=== PATIENT | female | born 1945 | race African-American/Black ===

== ENCOUNTER 2017-10-12 13:11 | Inpatient (IN) ==
[2017-10-12] MEDS ORDERED: SODIUM CHLORIDE 0.9% 1,000 ML IV STA (15:10)
[2017-10-12 15:34] LABS: Basophils % 0.4 % (0.0-0.8); Eosinophils % 0.2 % (0.00-10.9); Hematocrit 41.7 VOL% (35.7-47.0); Hemoglobin 14.1 GM/DL (12.0-16.0); Immature Granulocytes % 0.2 %; Immature Granulocytes Absolute 0.01 #; Lymphocytes # 1.2 10*3/uL (1.4-4.0); Lymphocytes % 26.7 % (21.3-54.2); Mean Corpuscular HGB Conc 33.8 GM/DL (32-36); Mean Corpuscular Hemoglobin 31 PG (27-34); Mean Platelet Volume 11.5 FL (9.6-12.0); Monocytes # 0.7 10*3/uL (0.11-0.8); Monocytes % 16.5 % (1.7-12.7); Neutrophils # 2.5 10*3/uL (1.4-7.4); Platelet Count 127 T/CUMM (130-400); Red Blood Count 4.58 MC/CUMM (3.8-5.5); Red Cell Distribution Width 13.2 % (9.3-17.3); White Blood Count 4.5 T/CUMM (4-12)
[2017-10-12 15:44] LABS: INR 1.1; PT Patient Result 11.2 SECS; Partial Thromboplastin Time 29.2 SECS (0-40)
[2017-10-12] MEDS ORDERED: DILTIAZEM 50 MG/10 ML VIAL IV STA (15:47)
[2017-10-12 16:08] LABS: Alanine Aminotransferase 45 U/L (13-56); Albumin 3.3 G/DL (3.4-5.0); Alkaline Phosphatase 29 U/L (45-117); Aspartate Amino Transferase 31 U/L (0-37); Bilirubin,Total < 0.39 MG/DL (0.2-1.0); Blood Urea Nitrogen 8 MG/DL (7-18); Calcium 8.7 MG/DL (8.5-10.1); Glucose 130 MG/DL (74-106); Osmolality,Calculated 272.8 MOS/KG (273-304); Potassium 3.6 MMOL/L (3.5-5.1); Sodium 137 MMOL/L (136-145)
[2017-10-12 16:14] LABS: Troponin I Only 0.086 NG/ML (0.00-0.045)
[2017-10-12 16:15] LABS: Free T4 (Free Thyroxine) 1.16 NG/DL (0.76-1.46); Thyroid Stimulating Hormone 0.137 uIU/ml (0.358-3.74)
[2017-10-12 16:20] LABS: Apearance,Urine Slightly Hazy (Clear); Bacteria,Urine Occasional /HPF (Few); Bilirubin,Urine Negative (Negative); Blood, Urine Negative (Negative); Glucose,Urine (UA) Negative (Negative); Hyaline Casts,Urine 1 /LPF (0-3); Ketones,Urine Negative (Negative); Mucus,Urine Occasional /LPF (Occasional); Nitrite,Urine Negative (Negative); Protein,Urine 30 MG/DL; RBC,Urine 6 /HPF (0-4); Squamous Epithelial Cell,Urine Occasional /HPF (0-10); Urine Color Yellow (Yellow); Urine Specific Gravity 1.012 (1.001-1.035); Urine Urobilinogen < 2.0 EU/DL (0.2-1.0); WBC,Urine 2 /HPF (0-6)
[2017-10-12] MEDS ORDERED: FUROSEMIDE 40 MG/4 ML VIAL IV STA (17:09)
[2017-10-12] MEDS ORDERED: FUROSEMIDE 100 MG/10 ML VIAL ONE (17:18)
[2017-10-12] MEDS ORDERED: METHOCARBAMOL 500 MG TABLET PO PRN (17:35)
[2017-10-12] MEDS ORDERED: DIGOXIN 0.5 MG/2 ML AMP IV STA (17:37)
[2017-10-12] MEDS ORDERED: DIGOXIN 0.5 MG/2 ML AMP ONE (17:57)
[2017-10-12 20:14] LABS: Anisocytosis 1+; Band Neutrophils 3 % (0-10); Lymphocytes 26 % (20-55); Metamyelocytes 2 %; Myelocytes 6 %; Segmented Neutrophils 56 % (50-85); Total Cells Counted 100
[2017-10-12 20:15] LABS: Hypochromasia 1+; Platelet Estimate Adequate
[2017-10-12] MEDS: APIXABAN 5 MG TABLET PO SCH (20:18)
[2017-10-12] MEDS: OSELTAMIVIR 75 MG CAPSULE PO SCH (20:18)
[2017-10-12] MEDS: SOTALOL 80 MG TABLET PO SCH (20:18)
[2017-10-12] MEDS ORDERED: DILTIAZEM 50 MG/10 ML VIAL IV ONE (20:32)
[2017-10-12 20:44] LABS: Troponin I Only 0.085 NG/ML (0.00-0.045)
[2017-10-12] MEDS ORDERED: DILTIAZEM INJ 100 MG in SODIUM CHLORIDE 0.9% 100 ML IV SCH (21:00)
[2017-10-13 01:44] LABS: Troponin I Only 0.084 NG/ML (0.00-0.045)
[2017-10-13 01:51] LABS: Albumin 2.8 G/DL (3.4-5.0); Bilirubin,Total 0.4 MG/DL (0.2-1.0); Calcium 7.9 MG/DL (8.5-10.1); Magnesium 1.3 MG/DL (1.8-2.4); Osmolality,Calculated 277.4 MOS/KG (273-304); Phosphorous 3.3 MG/DL (2.5-4.9); Potassium 2.9 MMOL/L (3.5-5.1); Total Protein 5.7 G/DL (6.4-8.3)
[2017-10-13 01:57] LABS: Basophils % 0.2 % (0.0-0.8); Eosinophils % 0.2 % (0.00-10.9); Hematocrit 37.5 VOL% (35.7-47.0); Hemoglobin 12.9 GM/DL (12.0-16.0); Immature Granulocytes % 0.5 %; Immature Granulocytes Absolute 0.02 #; Lymphocytes # 1.3 10*3/uL (1.4-4.0); Mean Corpuscular HGB Conc 34.4 GM/DL (32-36); Mean Corpuscular Hemoglobin 31 PG (27-34); Mean Corpuscular Volume 90.1 FL (87-102); Mean Platelet Volume 11.3 FL (9.6-12.0); Monocytes # 0.7 10*3/uL (0.11-0.8); Monocytes % 15.9 % (1.7-12.7); Neutrophils # 2.1 10*3/uL (1.4-7.4); Neutrophils % 52.2 % (38.7-73.9); Platelet Count 116 T/CUMM (130-400); Red Blood Count 4.16 MC/CUMM (3.8-5.5); Red Cell Distribution Width 13.2 % (9.3-17.3); White Blood Count 4.1 T/CUMM (4-12)
[2017-10-13 03:57] LABS: Anisocytosis 1+; Band Neutrophils 4 % (0-10); Eosinophils 1 % (0-10); Hypochromasia Slight; Lymphocytes 26 % (20-55); Macrocytosis 1+; Platelet Estimate Decreased; Segmented Neutrophils 54 % (50-85); Total Cells Counted 100
[2017-10-13] MEDS ORDERED: POTASSIUM CHLORIDE 20 MEQ TABLET PO ONE ×2 (05:00→10:00)
[2017-10-13 08:51] LABS: Troponin I Only 0.076 NG/ML (0.00-0.045)
[2017-10-13] MEDS ORDERED: CETIRIZINE 10 MG TABLET PO SCH (09:00)
[2017-10-13] MEDS: POTASSIUM CHLORIDE RIDER 10 MEQ in PREMIX 1 EACH IV PRN ×5 (09:43→18:55)
[2017-10-13] MEDS: SOTALOL 80 MG TABLET PO SCH ×2 (09:47→21:12)
[2017-10-13] MEDS: FUROSEMIDE 40 MG/4 ML VIAL IV SCH (09:48)
[2017-10-13] MEDS: APIXABAN 5 MG TABLET PO SCH ×2 (09:48→21:12)
[2017-10-13] MEDS: OSELTAMIVIR 75 MG CAPSULE PO SCH ×2 (09:48→21:12)
[2017-10-13] MEDS ORDERED: traZODone 50 MG TABLET PO PRN (10:28)
[2017-10-13] MEDS: CARVEDILOL 25 MG TABLET PO SCH ×2 (11:24→21:12)
[2017-10-13] MEDS: metFORMIN 500 MG TABLET PO SCH ×2 (11:24→21:12)
[2017-10-13] MEDS: PANTOPRAZOLE 40 MG TABLET PO SCH (11:24)
[2017-10-13] MEDS: SPIRONOLACTONE 25 MG TABLET PO SCH (21:12)
[2017-10-13] MEDS: ATORVASTATIN 40 MG TABLET PO SCH (21:12)
[2017-10-14 05:53] LABS: Basophils % 0.5 % (0.0-0.8); Eosinophils # 0.1 10*3/uL (0.0-0.87); Eosinophils % 1.4 % (0.00-10.9); Hematocrit 38.8 VOL% (35.7-47.0); Hemoglobin 13.1 GM/DL (12.0-16.0); Lymphocytes # 1.1 10*3/uL (1.4-4.0); Lymphocytes % 29.5 % (21.3-54.2); Mean Corpuscular HGB Conc 33.8 GM/DL (32-36); Mean Corpuscular Hemoglobin 31 PG (27-34); Mean Corpuscular Volume 91.5 FL (87-102); Mean Platelet Volume 11.9 FL (9.6-12.0); Monocytes # 0.4 10*3/uL (0.11-0.8); Monocytes % 9.5 % (1.7-12.7); Neutrophils # 2.2 10*3/uL (1.4-7.4); Neutrophils % 59.1 % (38.7-73.9); Platelet Count 123 T/CUMM (130-400); Red Blood Count 4.24 MC/CUMM (3.8-5.5); Red Cell Distribution Width 13.2 % (9.3-17.3); White Blood Count 3.7 T/CUMM (4-12)
[2017-10-14 06:12] LABS: Albumin 2.9 G/DL (3.4-5.0); Bilirubin,Total 0.9 MG/DL (0.2-1.0); Calcium 8.3 MG/DL (8.5-10.1); Magnesium 1.4 MG/DL (1.8-2.4); Osmolality,Calculated 279.4 MOS/KG (273-304); Phosphorous 3.1 MG/DL (2.5-4.9); Potassium 3.9 MMOL/L (3.5-5.1); Total Protein 5.9 G/DL (6.4-8.3)
[2017-10-14 06:28] LABS: Band Neutrophils 1 % (0-10); Eosinophils 2 % (0-10); Hypochromasia 1+; Lymphocytes 29 % (20-55); Segmented Neutrophils 61 % (50-85); Total Cells Counted 100
[2017-10-14 06:29] LABS: Microcytosis 1+; Platelet Estimate Adequate
[2017-10-14] MEDS: SOTALOL 80 MG TABLET PO SCH ×2 (08:28→21:09)
[2017-10-14] MEDS: SERTRALINE 100 MG TABLET PO SCH (08:28)
[2017-10-14] MEDS: APIXABAN 5 MG TABLET PO SCH ×2 (08:28→21:09)
[2017-10-14] MEDS: VALSARTAN 160 MG TABLET PO SCH (08:28)
[2017-10-14] MEDS: metFORMIN 500 MG TABLET PO SCH ×2 (08:29→21:09)
[2017-10-14] MEDS: amLODIPine 10 MG TABLET PO SCH (08:29)
[2017-10-14] MEDS: CARVEDILOL 25 MG TABLET PO SCH (08:29)
[2017-10-14] MEDS: PANTOPRAZOLE 40 MG TABLET PO SCH (08:29)
[2017-10-14] MEDS: FUROSEMIDE 40 MG/4 ML VIAL IV SCH (08:29)
[2017-10-14] MEDS: OSELTAMIVIR 75 MG CAPSULE PO SCH ×2 (08:29→21:09)
[2017-10-14] MEDS: sitaGLIPtin 100 MG TABLET PO SCH (10:41)
[2017-10-14] MEDS ORDERED: MAGNESIUM SULF RIDER 2 GM in PREMIX 1 EACH IV PRN (13:00)
[2017-10-14] MEDS ORDERED: MAGNESIUM SULF RIDER 4 GM in PREMIX 1 EACH IV PRN (13:00)
[2017-10-14] MEDS: MAGNESIUM OXIDE 400 MG TABLET PO SCH (21:09)
[2017-10-14] MEDS: SPIRONOLACTONE 25 MG TABLET PO SCH (21:09)
[2017-10-14] MEDS: ATORVASTATIN 40 MG TABLET PO SCH (21:09)
[2017-10-15 05:41] LABS: Basophils % 0.2 % (0.0-0.8); Eosinophils % 0.9 % (0.00-10.9); Hematocrit 41.1 VOL% (35.7-47.0); Hemoglobin 13.7 GM/DL (12.0-16.0); Immature Granulocytes % 0.2 %; Immature Granulocytes Absolute 0.01 #; Lymphocytes # 1.5 10*3/uL (1.4-4.0); Lymphocytes % 34.2 % (21.3-54.2); Mean Corpuscular HGB Conc 33.3 GM/DL (32-36); Mean Corpuscular Hemoglobin 31 PG (27-34); Mean Corpuscular Volume 92.4 FL (87-102); Mean Platelet Volume 11.7 FL (9.6-12.0); Monocytes # 0.4 10*3/uL (0.11-0.8); Monocytes % 8.9 % (1.7-12.7); Neutrophils # 2.5 10*3/uL (1.4-7.4); Neutrophils % 55.6 % (38.7-73.9); Platelet Count 135 T/CUMM (130-400); Red Blood Count 4.45 MC/CUMM (3.8-5.5); Red Cell Distribution Width 12.9 % (9.3-17.3); White Blood Count 4.5 T/CUMM (4-12)
[2017-10-15 06:12] LABS: Calcium 8.4 MG/DL (8.5-10.1); Magnesium 1.6 MG/DL (1.8-2.4); Osmolality,Calculated 282.3 MOS/KG (273-304); Potassium 4.2 MMOL/L (3.5-5.1); Risk Ratio 2.94; VLDL CHOLESTEROL 22.2 MG/DL
[2017-10-15 06:25] LABS: Band Neutrophils 2 % (0-10); Eosinophils 2 % (0-10); Lymphocytes 42 % (20-55); Segmented Neutrophils 44 % (50-85); Total Cells Counted 100
[2017-10-15 06:26] LABS: Giant Platelets Few; Hypochromasia 1+; Microcytosis Slight; Ovalocytes Slight; Platelet Estimate Normal
[2017-10-15] MEDS: amLODIPine 10 MG TABLET PO SCH (08:44)
[2017-10-15] MEDS: MAGNESIUM OXIDE 400 MG TABLET PO SCH ×2 (08:44→20:59)
[2017-10-15] MEDS: SERTRALINE 100 MG TABLET PO SCH (08:44)
[2017-10-15] MEDS: metFORMIN 500 MG TABLET PO SCH ×2 (08:44→20:59)
[2017-10-15] MEDS: APIXABAN 5 MG TABLET PO SCH ×2 (08:44→21:00)
[2017-10-15] MEDS: OSELTAMIVIR 75 MG CAPSULE PO SCH ×2 (08:44→21:00)
[2017-10-15] MEDS: PANTOPRAZOLE 40 MG TABLET PO SCH (08:44)
[2017-10-15] MEDS: VALSARTAN 160 MG TABLET PO SCH (08:44)
[2017-10-15] MEDS: sitaGLIPtin 100 MG TABLET PO SCH (08:44)
[2017-10-15] MEDS: SOTALOL 80 MG TABLET PO SCH ×2 (08:44→20:59)
[2017-10-15] MEDS: FUROSEMIDE 40 MG/4 ML VIAL IV SCH (08:45)
[2017-10-15] MEDS: ATORVASTATIN 40 MG TABLET PO SCH (20:59)
[2017-10-15] MEDS: SPIRONOLACTONE 25 MG TABLET PO SCH (20:59)
[2017-10-16] MEDS: SERTRALINE 100 MG TABLET PO SCH (09:48)
[2017-10-16] MEDS: OSELTAMIVIR 75 MG CAPSULE PO SCH (09:48)
[2017-10-16] MEDS: MAGNESIUM OXIDE 400 MG TABLET PO SCH (09:48)
[2017-10-16] MEDS: PANTOPRAZOLE 40 MG TABLET PO SCH (09:48)
[2017-10-16] MEDS: amLODIPine 10 MG TABLET PO SCH (09:49)
[2017-10-16] MEDS: metFORMIN 500 MG TABLET PO SCH (09:49)
[2017-10-16] MEDS: VALSARTAN 160 MG TABLET PO SCH (09:49)
[2017-10-16] MEDS: sitaGLIPtin 100 MG TABLET PO SCH (09:50)
[2017-10-16] MEDS: APIXABAN 5 MG TABLET PO SCH (09:50)
[2017-10-16] MEDS: FUROSEMIDE 40 MG/4 ML VIAL IV SCH (09:50)
[2017-10-16] MEDS: SOTALOL 80 MG TABLET PO SCH (09:50)
[2017-10-16 12:23] VITALS: BP 177/73
[2017-10-17] MEDS ORDERED: FUROSEMIDE 40 MG TABLET PO SCH (09:00)
== END 2017-10-16 15:05 | disposition home or self-care (01) | DRG 309 ==
LOC: N.ED 13:11 → N.EDINP 17:10 → N.TELEN 19:38
PROVIDERS: ADMIT Hospitalist; ATTEND Hospitalist

== ENCOUNTER 2019-03-18 11:24 | Inpatient (IN) ==
[2019-03-18] MEDS ORDERED: DILTIAZEM 50 MG/10 ML VIAL IV STA (12:56)
[2019-03-18 14:03] LABS: Basophils % 0.2 % (0.0-0.8); Eosinophils # 0.1 10*3/uL (0.0-0.87); Eosinophils % 1.4 % (0.00-10.9); Hematocrit 39.1 VOL% (35.7-47.0); Hemoglobin 12.3 GM/DL (12.0-16.0); Immature Granulocytes % 0.2 %; Immature Granulocytes Absolute 0.01 #; Lymphocytes # 1.2 10*3/uL (1.4-4.0); Lymphocytes % 29.9 % (21.3-54.2); Mean Corpuscular HGB Conc 31.5 GM/DL (32-36); Mean Corpuscular Volume 87.7 FL (87-102); Mean Platelet Volume 11.4 FL (9.6-12.0); Monocytes % 11.3 % (1.7-12.7); Platelet Count 132 T/CUMM (130-400); Red Blood Count 4.46 MC/CUMM (3.8-5.5); Red Cell Distribution Width 16.4 % (9.3-17.3); White Blood Count 4.2 T/CUMM (4-12)
[2019-03-18 14:13] LABS: INR 1.2; PT Patient Result 12.5 SECS; Partial Thromboplastin Time 25.8 SECS (0-40)
[2019-03-18 14:23] LABS: Albumin 3.4 G/DL (3.4-5.0); Bilirubin,Total 0.8 MG/DL (0.2-1.0); Calcium 8.7 MG/DL (8.5-10.1); Osmolality,Calculated 281.3 MOS/KG (273-304); Total Protein 6.8 G/DL (6.4-8.3)
[2019-03-18] MEDS: dilTIAZem Drip 125 MG/125 ML PREMIX IV SCH (16:20)
[2019-03-18] MEDS ORDERED: GLUCAGON 1 MG VIAL IM PRN (16:47)
[2019-03-18] MEDS ORDERED: ACETAMINOPHEN 325 MG TABLET PO PRN (16:47)
[2019-03-18] MEDS ORDERED: DEXTROSE 50% 25 GM/50 ML VIAL IV PRN (16:47)
[2019-03-18] MEDS ORDERED: MAGNESIUM SULF RIDER 2 GM in PREMIX 1 EACH IV ONE (16:47)
[2019-03-18] MEDS: INSULIN REGULAR 100 UNIT/ML SUBCUT SCH (20:40)
[2019-03-18] MEDS: CHLORTHALIDONE 25 MG TABLET PO SCH (22:49)
[2019-03-18] MEDS: ENOXAPARIN 80 MG/0.8 ML SYRINGE SUBCUT SCH (22:49)
[2019-03-18] MEDS: busPIRone 5 MG TABLET PO SCH (22:49)
[2019-03-18] MEDS: POTASSIUM CHLORIDE 20 MEQ TABLET PO PRN (22:49)
[2019-03-19] MEDS: POTASSIUM CHLORIDE 20 MEQ TABLET PO PRN ×2 (01:07→04:46)
[2019-03-19] MEDS: dilTIAZem Drip 125 MG/125 ML PREMIX IV SCH ×2 (04:46→16:10)
[2019-03-19 07:14] LABS: Basophils % 0.5 % (0.0-0.8); Eosinophils # 0.1 10*3/uL (0.0-0.87); Eosinophils % 1.6 % (0.00-10.9); Hematocrit 37.5 VOL% (35.7-47.0); Hemoglobin 11.5 GM/DL (12.0-16.0); Immature Granulocytes % 0.2 %; Immature Granulocytes Absolute 0.01 #; Lymphocytes # 1.3 10*3/uL (1.4-4.0); Lymphocytes % 30.6 % (21.3-54.2); Mean Corpuscular HGB Conc 30.7 GM/DL (32-36); Mean Platelet Volume 11.5 FL (9.6-12.0); Neutrophils % 54.1 % (38.7-73.9); Platelet Count 122 T/CUMM (130-400); Red Blood Count 4.26 MC/CUMM (3.8-5.5); Red Cell Distribution Width 16.7 % (9.3-17.3); White Blood Count 4.3 T/CUMM (4-12)
[2019-03-19 07:45] LABS: Albumin 3.4 G/DL (3.4-5.0); Bilirubin,Total 1.2 MG/DL (0.2-1.0); Osmolality,Calculated 278.4 MOS/KG (273-304); Total Protein 6.9 G/DL (6.4-8.3)
[2019-03-19] MEDS: INSULIN REGULAR 100 UNIT/ML SUBCUT SCH ×4 (07:51→23:00)
[2019-03-19] MEDS ORDERED: MAGNESIUM SULF RIDER 2 GM in PREMIX 1 EACH IV PRN (08:19)
[2019-03-19] MEDS ORDERED: MAGNESIUM SULF RIDER 4 GM in PREMIX 1 EACH IV PRN (08:19)
[2019-03-19] MEDS: ATORVASTATIN 40 MG TABLET PO SCH (08:51)
[2019-03-19] MEDS: busPIRone 5 MG TABLET PO SCH ×2 (08:51→22:59)
[2019-03-19] MEDS: METOPROLOL TARTRATE 25 MG TABLET PO SCH ×2 (08:51→22:59)
[2019-03-19] MEDS: ENOXAPARIN 80 MG/0.8 ML SYRINGE SUBCUT SCH ×2 (08:51→09:41)
[2019-03-19] MEDS: PANTOPRAZOLE 40 MG TABLET PO SCH (08:51)
[2019-03-19] MEDS ORDERED: amLODIPine 10 MG TABLET PO SCH (09:00)
[2019-03-19] MEDS ORDERED: DILTIAZEM 60 MG TABLET PO SCH (09:00)
[2019-03-19] MEDS ORDERED: ASPIRIN 325 MG TABLET PO SCH (09:00)
[2019-03-19] MEDS ORDERED: SODIUM CHLORIDE 0.9% 500 ML IV ONE ×2 (10:58→11:36)
[2019-03-19] MEDS ORDERED: ONDANSETRON 4 MG/2 ML VIAL ONE (11:25)
[2019-03-19] MEDS ORDERED: ONDANSETRON 4 MG/2 ML VIAL IV PRN (11:26)
[2019-03-19 12:05] LABS: Troponin I 0.022 NG/ML (0.00-0.045)
[2019-03-19] MEDS: DILTIAZEM 30 MG TABLET PO SCH ×3 (13:03→22:59)
[2019-03-19 14:48] LABS: Calcium 8.2 MG/DL (8.5-10.1); Osmolality,Calculated 284.5 MOS/KG (273-304)
[2019-03-19] MEDS: APIXABAN 5 MG TABLET PO SCH (23:00)
[2019-03-19] MEDS: CHLORTHALIDONE 25 MG TABLET PO SCH (23:00)
[2019-03-20 06:06] LABS: Risk Ratio 1.66
[2019-03-20 07:06] LABS: Basophils % 0.4 % (0.0-0.8); Eosinophils # 0.1 10*3/uL (0.0-0.87); Eosinophils % 1.4 % (0.00-10.9); Hematocrit 34.1 VOL% (35.7-47.0); Hemoglobin 10.6 GM/DL (12.0-16.0); Immature Granulocytes % 0.4 %; Immature Granulocytes Absolute 0.02 #; Lymphocytes # 1.5 10*3/uL (1.4-4.0); Lymphocytes % 26.8 % (21.3-54.2); Mean Corpuscular HGB Conc 31.1 GM/DL (32-36); Mean Corpuscular Volume 87.7 FL (87-102); Mean Platelet Volume 11.4 FL (9.6-12.0); Monocytes % 14.1 % (1.7-12.7); Neutrophils % 56.9 % (38.7-73.9); Platelet Count 142 T/CUMM (130-400); Red Blood Count 3.89 MC/CUMM (3.8-5.5); Red Cell Distribution Width 16.9 % (9.3-17.3); White Blood Count 5.5 T/CUMM (4-12)
[2019-03-20 07:33] LABS: Calcium 8.1 MG/DL (8.5-10.1); Osmolality,Calculated 280.3 MOS/KG (273-304)
[2019-03-20] MEDS: DILTIAZEM CD 120 MG CAPSULE PO SCH (09:12)
[2019-03-20] MEDS: ATORVASTATIN 40 MG TABLET PO SCH (09:12)
[2019-03-20] MEDS: busPIRone 5 MG TABLET PO SCH ×2 (09:13→22:05)
[2019-03-20] MEDS: METOPROLOL TARTRATE 25 MG TABLET PO SCH ×2 (09:13→22:05)
[2019-03-20] MEDS: ASPIRIN EC 81 MG TABLET PO SCH (09:13)
[2019-03-20] MEDS: APIXABAN 5 MG TABLET PO SCH ×2 (09:13→22:06)
[2019-03-20] MEDS: PANTOPRAZOLE 40 MG TABLET PO SCH (09:13)
[2019-03-20] MEDS: INSULIN REGULAR 100 UNIT/ML SUBCUT SCH ×4 (09:20→22:06)
[2019-03-20] MEDS ORDERED: SODIUM CHLORIDE 0.9% 500 ML IV ONE (09:43)
[2019-03-21 05:43] LABS: Basophils % 0.2 % (0.0-0.8); Eosinophils # 0.1 10*3/uL (0.0-0.87); Eosinophils % 1.8 % (0.00-10.9); Hematocrit 33.3 VOL% (35.7-47.0); Hemoglobin 10.3 GM/DL (12.0-16.0); Lymphocytes # 1.3 10*3/uL (1.4-4.0); Lymphocytes % 29.1 % (21.3-54.2); Mean Corpuscular HGB Conc 30.9 GM/DL (32-36); Mean Corpuscular Volume 88.1 FL (87-102); Mean Platelet Volume 11.5 FL (9.6-12.0); Monocytes % 13.8 % (1.7-12.7); Neutrophils % 55.1 % (38.7-73.9); Platelet Count 127 T/CUMM (130-400); Red Blood Count 3.78 MC/CUMM (3.8-5.5); Red Cell Distribution Width 17.1 % (9.3-17.3); White Blood Count 4.4 T/CUMM (4-12)
[2019-03-21 06:05] LABS: Calcium 8.3 MG/DL (8.5-10.1); Osmolality,Calculated 282.3 MOS/KG (273-304)
[2019-03-21] MEDS: INSULIN REGULAR 100 UNIT/ML SUBCUT SCH ×2 (08:50→12:48)
[2019-03-21] MEDS: ASPIRIN EC 81 MG TABLET PO SCH (09:26)
[2019-03-21] MEDS: DILTIAZEM CD 120 MG CAPSULE PO SCH (09:26)
[2019-03-21] MEDS: busPIRone 5 MG TABLET PO SCH (09:26)
[2019-03-21] MEDS: METOPROLOL TARTRATE 25 MG TABLET PO SCH (09:28)
[2019-03-21] MEDS: APIXABAN 5 MG TABLET PO SCH (09:28)
[2019-03-21] MEDS: PANTOPRAZOLE 40 MG TABLET PO SCH (09:28)
[2019-03-21] MEDS: ATORVASTATIN 40 MG TABLET PO SCH (09:28)
[2019-03-21 12:49] VITALS: BP 131/110
== END 2019-03-21 13:55 | disposition home or self-care (01) | DRG 309 ==
LOC: N.ED 11:24 → N.EDINP 18:13 → N.TELEN 18:17
PROVIDERS: ADMIT Internal Medicine; ATTEND Internal Medicine

== ENCOUNTER 2019-04-09 10:50 | Inpatient (IN) ==
[2019-04-09] MEDS ORDERED: DILTIAZEM 50 MG/10 ML VIAL IV STA ×3 (11:18→12:33)
[2019-04-09] MEDS ORDERED: DILTIAZEM 50 MG/10 ML VIAL IV ONE (11:19)
[2019-04-09] MEDS ORDERED: DILTIAZEM 25 MG/5 ML VIAL IV ONE (11:20)
[2019-04-09 11:33] LABS: Basophils % 0.5 % (0.0-0.8); Eosinophils % 1.1 % (0.00-10.9); Hematocrit 39.8 VOL% (35.7-47.0); Hemoglobin 12.3 GM/DL (12.0-16.0); Immature Granulocytes % 0.3 %; Immature Granulocytes Absolute 0.01 #; Lymphocytes # 1.4 10*3/uL (1.4-4.0); Lymphocytes % 38.4 % (21.3-54.2); Mean Corpuscular HGB Conc 30.9 GM/DL (32-36); Mean Corpuscular Volume 87.5 FL (87-102); Neutrophils % 47.7 % (38.7-73.9); Platelet Count 159 T/CUMM (130-400); Red Blood Count 4.55 MC/CUMM (3.8-5.5); Red Cell Distribution Width 17.7 % (9.3-17.3); White Blood Count 3.7 T/CUMM (4-12)
[2019-04-09] MEDS: dilTIAZem Drip 125 MG/125 ML PREMIX IV SCH (11:44)
[2019-04-09 12:04] LABS: Albumin 3.6 G/DL (3.4-5.0); Bilirubin,Total 0.9 MG/DL (0.2-1.0); Calcium 8.7 MG/DL (8.5-10.1); Osmolality,Calculated 285.8 MOS/KG (273-304); Thyroid Stimulating Hormone 0.804 uIU/ml (0.358-3.74); Total Protein 6.9 G/DL (6.4-8.3)
[2019-04-09] MEDS ORDERED: MAGNESIUM SULF RIDER 2 GM in PREMIX 1 EACH IV STA (14:29)
[2019-04-09] MEDS ORDERED: traZODone 50 MG TABLET PO PRN (18:51)
[2019-04-09] MEDS ORDERED: DEXTROSE 50% 25 GM/50 ML VIAL IV PRN (18:51)
[2019-04-09] MEDS ORDERED: ACETAMINOPHEN 325 MG TABLET PO PRN (18:51)
[2019-04-09] MEDS ORDERED: ONDANSETRON 4 MG/2 ML VIAL IV PRN (18:51)
[2019-04-09] MEDS ORDERED: ZALEPLON 5 MG CAPSULE PO PRN (18:51)
[2019-04-09] MEDS ORDERED: PROMETHAZINE 25 MG/1 ML VIAL IM PRN (18:51)
[2019-04-09] MEDS ORDERED: GLUCAGON 1 MG VIAL IM PRN (18:51)
[2019-04-09] MEDS ORDERED: POTASSIUM CHLORIDE RIDER 10 MEQ in PREMIX 1 EACH IV PRN (19:06)
[2019-04-09] MEDS ORDERED: DEXTROSE 50% 25 GM/50 ML SYRINGE IV PRN (19:40)
[2019-04-09] MEDS: APIXABAN 5 MG TABLET PO SCH (23:30)
[2019-04-09] MEDS: METOPROLOL TARTRATE 25 MG TABLET PO SCH (23:30)
[2019-04-09] MEDS: busPIRone 5 MG TABLET PO SCH (23:30)
[2019-04-09] MEDS: DOCUSATE SODIUM 100 MG CAPSULE PO SCH (23:31)
[2019-04-09] MEDS: INSULIN REGULAR 100 UNIT/ML SUBCUT SCH (23:37)
[2019-04-10 04:57] LABS: Basophils % 0.5 % (0.0-0.8); Eosinophils # 0.1 10*3/uL (0.0-0.87); Eosinophils % 1.7 % (0.00-10.9); Hematocrit 37.8 VOL% (35.7-47.0); Immature Granulocytes % 0.2 %; Immature Granulocytes Absolute 0.01 #; Lymphocytes # 1.3 10*3/uL (1.4-4.0); Lymphocytes % 30.7 % (21.3-54.2); Mean Corpuscular HGB Conc 31.7 GM/DL (32-36); Mean Corpuscular Volume 85.5 FL (87-102); Mean Platelet Volume 11.8 FL (9.6-12.0); Monocytes % 14.7 % (1.7-12.7); Neutrophils % 52.2 % (38.7-73.9); Platelet Count 166 T/CUMM (130-400); Red Blood Count 4.42 MC/CUMM (3.8-5.5); Red Cell Distribution Width 17.4 % (9.3-17.3); White Blood Count 4.1 T/CUMM (4-12)
[2019-04-10 05:29] LABS: Albumin 3.1 G/DL (3.4-5.0); Bilirubin,Total 1.5 MG/DL (0.2-1.0); Calcium 8.2 MG/DL (8.5-10.1); Osmolality,Calculated 283.1 MOS/KG (273-304); Total Protein 6.2 G/DL (6.4-8.3)
[2019-04-10] MEDS ORDERED: POTASSIUM CHLORIDE 20 MEQ TABLET PO PRN ×2 (06:09→10:07)
[2019-04-10] MEDS ORDERED: POTASSIUM CHLORIDE 20 MEQ TABLET PO ONE (07:13)
[2019-04-10] MEDS ORDERED: MAGNESIUM SULF RIDER 2 GM in PREMIX 1 EACH IV ONE (07:14)
[2019-04-10] MEDS ORDERED: POTASSIUM CHLORIDE INJ 100 MEQ in SODIUM CHLORIDE 0.9% 1,000 ML IV SCH (07:30)
[2019-04-10] MEDS: LOSARTAN 50 MG TABLET PO SCH (09:33)
[2019-04-10] MEDS: POTASSIUM CHLORIDE 10 MEQ TABLET PO SCH (09:34)
[2019-04-10] MEDS: ASPIRIN EC 81 MG TABLET PO SCH (09:34)
[2019-04-10] MEDS: APIXABAN 5 MG TABLET PO SCH ×2 (09:34→21:10)
[2019-04-10] MEDS: METOPROLOL TARTRATE 25 MG TABLET PO SCH (09:34)
[2019-04-10] MEDS: PANTOPRAZOLE 40 MG TABLET PO SCH (09:34)
[2019-04-10] MEDS: busPIRone 5 MG TABLET PO SCH ×2 (09:34→21:09)
[2019-04-10] MEDS: ATORVASTATIN 40 MG TABLET PO SCH (09:34)
[2019-04-10] MEDS: DOCUSATE SODIUM 100 MG CAPSULE PO SCH ×2 (09:34→21:25)
[2019-04-10] MEDS: INSULIN REGULAR 100 UNIT/ML SUBCUT SCH ×4 (09:38→21:45)
[2019-04-10] MEDS ORDERED: MAGNESIUM SULF RIDER 2 GM in PREMIX 1 EACH IV PRN (10:07)
[2019-04-10] MEDS ORDERED: MAGNESIUM SULF RIDER 4 GM in PREMIX 1 EACH IV PRN (10:07)
[2019-04-10] MEDS: DILTIAZEM CD 120 MG CAPSULE PO SCH (10:37)
[2019-04-10] MEDS ORDERED: POTASSIUM CHLORIDE INJ 40 MEQ in SODIUM CHLORIDE 0.9% 1,000 ML IV SCH (16:00)
[2019-04-10] MEDS ORDERED: LOPERAMIDE 2 MG CAPSULE PO PRN (16:10)
[2019-04-10] MEDS: dilTIAZem Drip 125 MG/125 ML PREMIX IV SCH (16:13)
[2019-04-10] MEDS: METOPROLOL TARTRATE 50 MG TABLET PO SCH (21:09)
[2019-04-10] MEDS: VANCOMYCIN 50 MG/ML 60 ML/BOTTLE PO SCH (21:10)
[2019-04-11] MEDS: VANCOMYCIN 50 MG/ML 60 ML/BOTTLE PO SCH ×2 (01:30→05:57)
[2019-04-11 03:35] LABS: Basophils % 0.4 % (0.0-0.8); Eosinophils % 0.2 % (0.00-10.9); Hematocrit 39.6 VOL% (35.7-47.0); Hemoglobin 12.3 GM/DL (12.0-16.0); Immature Granulocytes % 0.4 %; Immature Granulocytes Absolute 0.02 #; Lymphocytes # 1.2 10*3/uL (1.4-4.0); Lymphocytes % 21.5 % (21.3-54.2); Mean Corpuscular HGB Conc 31.1 GM/DL (32-36); Mean Corpuscular Volume 87.8 FL (87-102); Mean Platelet Volume 11.5 FL (9.6-12.0); Monocytes % 14.4 % (1.7-12.7); Neutrophils % 63.1 % (38.7-73.9); Platelet Count 174 T/CUMM (130-400); Red Blood Count 4.51 MC/CUMM (3.8-5.5); White Blood Count 5.4 T/CUMM (4-12)
[2019-04-11 04:05] LABS: Albumin 3.2 G/DL (3.4-5.0); Calcium 8.5 MG/DL (8.5-10.1); Osmolality,Calculated 285.8 MOS/KG (273-304); Total Protein 6.3 G/DL (6.4-8.3)
[2019-04-11 07:54] VITALS: BP 151/87
[2019-04-11] MEDS: busPIRone 5 MG TABLET PO SCH (08:28)
[2019-04-11] MEDS: APIXABAN 5 MG TABLET PO SCH (08:29)
[2019-04-11] MEDS: ASPIRIN EC 81 MG TABLET PO SCH (08:29)
[2019-04-11] MEDS: PANTOPRAZOLE 40 MG TABLET PO SCH (08:29)
[2019-04-11] MEDS: ATORVASTATIN 40 MG TABLET PO SCH (08:29)
[2019-04-11] MEDS: LOSARTAN 50 MG TABLET PO SCH (08:29)
[2019-04-11] MEDS: POTASSIUM CHLORIDE 10 MEQ TABLET PO SCH (08:29)
[2019-04-11] MEDS: DILTIAZEM CD 120 MG CAPSULE PO SCH (08:29)
[2019-04-11] MEDS: METOPROLOL TARTRATE 50 MG TABLET PO SCH (08:30)
[2019-04-11] MEDS: INSULIN REGULAR 100 UNIT/ML SUBCUT SCH ×2 (08:30→11:43)
[2019-04-11] MEDS: DOCUSATE SODIUM 100 MG CAPSULE PO SCH (08:30)
== END 2019-04-11 12:08 | disposition home or self-care (01) | DRG 309 ==
LOC: N.ED 10:50 → N.EDINP 10:50 → N.TELEN 19:29 → SUATTDRO 04-10 11:52
PROVIDERS: ADMIT Emergency Medicine; ATTEND Internal Medicine

== ENCOUNTER 2019-04-18 10:44 | Inpatient (IN) ==
[2019-04-18] MEDS ORDERED: LORazepam 2 MG/1 ML VIAL IV STA (11:03)
[2019-04-18] MEDS ORDERED: LORazepam 2 MG/1 ML VIAL ONE (11:04)
[2019-04-18 11:18] LABS: Basophils % 0.4 % (0.0-0.8); Hematocrit 40.2 VOL% (35.7-47.0); Hemoglobin 12.6 GM/DL (12.0-16.0); Immature Granulocytes % 0.6 %; Immature Granulocytes Absolute 0.03 #; Lymphocytes # 0.8 10*3/uL (1.4-4.0); Lymphocytes % 14.1 % (21.3-54.2); Mean Corpuscular HGB Conc 31.3 GM/DL (32-36); Mean Corpuscular Volume 86.3 FL (87-102); Mean Platelet Volume 12.5 FL (9.6-12.0); Monocytes % 7.2 % (1.7-12.7); Neutrophils % 77.7 % (38.7-73.9); Platelet Count 176 T/CUMM (130-400); Red Blood Count 4.66 MC/CUMM (3.8-5.5); Red Cell Distribution Width 17.8 % (9.3-17.3); White Blood Count 5.4 T/CUMM (4-12)
[2019-04-18 11:24] LABS: INR 1.1; PT Patient Result 12.2 SECS; Partial Thromboplastin Time 24.3 SECS (0-40)
[2019-04-18 11:32] LABS: Alanine Aminotransferase 24 U/L (13-56); Albumin 3.9 G/DL (3.4-5.0); Alkaline Phosphatase 42 U/L (45-117); Aspartate Amino Transferase 35 U/L (0-37); Blood Urea Nitrogen 9 MG/DL (7-18); Calcium 8.8 MG/DL (8.5-10.1); Glucose 139 MG/DL (74-106); Osmolality,Calculated 268.2 MOS/KG (273-304); Total Protein 7.8 G/DL (6.4-8.3); Troponin I < 0.015 NG/ML (0.00-0.045)
[2019-04-18 11:47] LABS: Apearance,Urine CLEAR (Clear); Bilirubin,Urine Negative (Negative); Blood, Urine Small mg/dL (Negative); Glucose,Urine (UA) Negative (Negative); Ketones,Urine 5 mg/dL (Negative); Mucus,Urine Occasional /LPF (Occasional); Nitrite,Urine Negative (Negative); Protein,Urine 100 MG/DL; RBC,Urine 15 /HPF (0-4); Squamous Epithelial Cell,Urine Occasional /HPF (0-10); Urine Color Straw (Yellow); Urine Specific Gravity 1.009 (1.001-1.035); Urine Urobilinogen < 2.0 EU/DL (0.2-1.0); WBC,Urine 1 /HPF (0-6)
[2019-04-18 11:50] LABS: Barbiturates Screen,Urine Negative (Negative); Benzodiazepines Screen,Urine Negative (Negative); Cannabinoid Screen,Urine Negative (Negative); Opiate Screen,Urine Negative (Negative); Phencyclidine Screen,Urine Negative (Negative)
[2019-04-18] MEDS ORDERED: ACETAMINOPHEN 325 MG TABLET PO PRN (14:21)
[2019-04-18] MEDS ORDERED: ONDANSETRON 4 MG/2 ML VIAL IV PRN (14:21)
[2019-04-18] MEDS ORDERED: GLUCAGON 1 MG VIAL IM PRN (14:33)
[2019-04-18] MEDS ORDERED: DEXTROSE 50% 25 GM/50 ML VIAL IV PRN (14:33)
[2019-04-18] MEDS ORDERED: LORazepam 2 MG/1 ML VIAL IV PRN (14:38)
[2019-04-18] MEDS: GABAPENTIN 100 MG CAPSULE PO SCH ×2 (15:50→20:18)
[2019-04-18] MEDS: INSULIN LISPRO 100 UNIT/ML SUBCUT SCH ×2 (15:50→20:46)
[2019-04-18] MEDS: busPIRone 5 MG TABLET PO SCH (20:17)
[2019-04-18] MEDS: DILTIAZEM 30 MG TABLET PO SCH (20:17)
[2019-04-18] MEDS: ATORVASTATIN 40 MG TABLET PO SCH (20:18)
[2019-04-18] MEDS: METOPROLOL TARTRATE 25 MG TABLET PO SCH (20:18)
[2019-04-19 04:48] LABS: Basophils % 0.4 % (0.0-0.8); Eosinophils % 0.4 % (0.00-10.9); Hematocrit 38.8 VOL% (35.7-47.0); Hemoglobin 12.3 GM/DL (12.0-16.0); Immature Granulocytes % 0.2 %; Immature Granulocytes Absolute 0.01 #; Lymphocytes # 1.2 10*3/uL (1.4-4.0); Lymphocytes % 25.8 % (21.3-54.2); Mean Corpuscular HGB Conc 31.7 GM/DL (32-36); Mean Corpuscular Volume 84.5 FL (87-102); Mean Platelet Volume 11.5 FL (9.6-12.0); Monocytes % 17.6 % (1.7-12.7); Neutrophils % 55.6 % (38.7-73.9); Platelet Count 159 T/CUMM (130-400); Red Blood Count 4.59 MC/CUMM (3.8-5.5); Red Cell Distribution Width 17.7 % (9.3-17.3); White Blood Count 4.5 T/CUMM (4-12)
[2019-04-19 05:24] LABS: Anisocytosis 1+; Eosinophils 1 % (0-10); Lymphocytes 28 % (20-55); Platelet Estimate Adequate; Segmented Neutrophils 66 % (50-85); Total Cells Counted 100
[2019-04-19 05:26] LABS: Calcium 8.7 MG/DL (8.5-10.1); Osmolality,Calculated 279.3 MOS/KG (273-304); Thyroid Stimulating Hormone 0.75 uIU/ml (0.358-3.74)
[2019-04-19] MEDS: INSULIN LISPRO 100 UNIT/ML SUBCUT SCH ×4 (07:52→22:16)
[2019-04-19] MEDS ORDERED: POTASSIUM CHLORIDE 20 MEQ TABLET PO PRN (08:02)
[2019-04-19] MEDS ORDERED: MAGNESIUM SULF RIDER 4 GM in PREMIX 1 EACH IV PRN (08:02)
[2019-04-19] MEDS: MAGNESIUM SULF RIDER 2 GM in PREMIX 1 EACH IV PRN ×2 (08:57→11:04)
[2019-04-19] MEDS: ASPIRIN 325 MG TABLET PO SCH (09:17)
[2019-04-19] MEDS: busPIRone 5 MG TABLET PO SCH ×2 (09:17→22:16)
[2019-04-19] MEDS: DIGOXIN 0.125 MG TABLET PO SCH (09:18)
[2019-04-19] MEDS: POTASSIUM CHLORIDE 10 MEQ TABLET PO SCH (09:18)
[2019-04-19] MEDS: DILTIAZEM 30 MG TABLET PO SCH ×2 (09:18→22:16)
[2019-04-19] MEDS: CHLORTHALIDONE 25 MG TABLET PO SCH (09:18)
[2019-04-19] MEDS: PANTOPRAZOLE 40 MG TABLET PO SCH (09:19)
[2019-04-19] MEDS: RIVAROXABAN 20 MG TABLET PO SCH (09:19)
[2019-04-19] MEDS: GABAPENTIN 100 MG CAPSULE PO SCH ×3 (09:19→22:16)
[2019-04-19] MEDS: METOPROLOL TARTRATE 25 MG TABLET PO SCH ×2 (09:19→22:16)
[2019-04-19] MEDS ORDERED: LORazepam 2 MG/1 ML VIAL IV ONE (13:03)
[2019-04-19] MEDS: POTASSIUM CHLORIDE RIDER 10 MEQ in PREMIX 1 EACH IV PRN ×2 (16:34→18:53)
[2019-04-19] MEDS: ATORVASTATIN 40 MG TABLET PO SCH (22:16)
[2019-04-20 04:40] LABS: Basophils % 0.6 % (0.0-0.8); Eosinophils # 0.1 10*3/uL (0.0-0.87); Eosinophils % 1.2 % (0.00-10.9); Hematocrit 39.1 VOL% (35.7-47.0); Hemoglobin 12.4 GM/DL (12.0-16.0); Immature Granulocytes % 0.4 %; Immature Granulocytes Absolute 0.02 #; Lymphocytes # 1.4 10*3/uL (1.4-4.0); Lymphocytes % 27.4 % (21.3-54.2); Mean Corpuscular HGB Conc 31.7 GM/DL (32-36); Mean Corpuscular Volume 86.3 FL (87-102); Mean Platelet Volume 12.2 FL (9.6-12.0); Monocytes % 17.7 % (1.7-12.7); Neutrophils % 52.7 % (38.7-73.9); Platelet Count 111 T/CUMM (130-400); Red Blood Count 4.53 MC/CUMM (3.8-5.5); Red Cell Distribution Width 17.5 % (9.3-17.3); White Blood Count 5.2 T/CUMM (4-12)
[2019-04-20 04:51] LABS: Calcium 8.6 MG/DL (8.5-10.1); Osmolality,Calculated 269.8 MOS/KG (273-304)
[2019-04-20 05:54] LABS: Anisocytosis 1+; Band Neutrophils 3 % (0-10); Lymphocytes 29 % (20-55); Ovalocytes 1+; Segmented Neutrophils 58 % (50-85); Total Cells Counted 100
[2019-04-20 05:55] LABS: Platelet Estimate Normal
[2019-04-20] MEDS ORDERED: DEXTROSE 10% 250 ML IV ONE (08:00)
[2019-04-20] MEDS: INSULIN LISPRO 100 UNIT/ML SUBCUT SCH ×5 (09:01→22:24)
[2019-04-20] MEDS: METOPROLOL TARTRATE 25 MG TABLET PO SCH ×3 (09:09→22:26)
[2019-04-20] MEDS: DILTIAZEM 30 MG TABLET PO SCH (09:09)
[2019-04-20] MEDS: DIGOXIN 0.125 MG TABLET PO SCH (09:09)
[2019-04-20] MEDS: CHLORTHALIDONE 25 MG TABLET PO SCH (09:14)
[2019-04-20] MEDS: RIVAROXABAN 20 MG TABLET PO SCH (09:14)
[2019-04-20] MEDS: busPIRone 5 MG TABLET PO SCH ×3 (09:14→22:26)
[2019-04-20] MEDS: PANTOPRAZOLE 40 MG TABLET PO SCH (09:14)
[2019-04-20] MEDS: ASPIRIN 325 MG TABLET PO SCH (09:14)
[2019-04-20] MEDS: GABAPENTIN 100 MG CAPSULE PO SCH ×4 (09:14→22:28)
[2019-04-20] MEDS: POTASSIUM CHLORIDE 10 MEQ TABLET PO SCH (09:15)
[2019-04-20] MEDS: DEXTROSE 5% NACL 0.45% 1,000 ML IV SCH (12:33)
[2019-04-20] MEDS: DILTIAZEM CD 120 MG CAPSULE PO SCH (13:11)
[2019-04-20] MEDS: ATORVASTATIN 40 MG TABLET PO SCH (21:11)
[2019-04-20] MEDS: levETIRAcetam 500 MG TABLET PO SCH ×2 (21:16→22:27)
[2019-04-21 05:21] LABS: Risk Ratio 3.64; VLDL CHOLESTEROL 24.2 MG/DL
[2019-04-21] MEDS: INSULIN LISPRO 100 UNIT/ML SUBCUT SCH ×4 (07:47→21:33)
[2019-04-21] MEDS: DEXTROSE 5% NACL 0.45% 1,000 ML IV SCH (08:27)
[2019-04-21] MEDS: GABAPENTIN 100 MG CAPSULE PO SCH ×3 (08:27→21:33)
[2019-04-21] MEDS: ASPIRIN 325 MG TABLET PO SCH (08:27)
[2019-04-21] MEDS: METOPROLOL TARTRATE 25 MG TABLET PO SCH ×2 (08:27→21:33)
[2019-04-21] MEDS: CHLORTHALIDONE 25 MG TABLET PO SCH (08:27)
[2019-04-21] MEDS: DIGOXIN 0.125 MG TABLET PO SCH (08:27)
[2019-04-21] MEDS: DILTIAZEM CD 120 MG CAPSULE PO SCH (08:27)
[2019-04-21] MEDS: levETIRAcetam 500 MG TABLET PO SCH ×2 (08:27→21:33)
[2019-04-21] MEDS: busPIRone 5 MG TABLET PO SCH ×2 (08:27→21:32)
[2019-04-21] MEDS: POTASSIUM CHLORIDE 10 MEQ TABLET PO SCH (08:27)
[2019-04-21] MEDS: RIVAROXABAN 20 MG TABLET PO SCH (08:27)
[2019-04-21] MEDS: PANTOPRAZOLE 40 MG TABLET PO SCH (08:28)
[2019-04-21] MEDS ORDERED: ATORVASTATIN 40 MG TABLET PO SCH (12:07)
[2019-04-22 04:54] LABS: Basophils % 0.4 % (0.0-0.8); Eosinophils # 0.1 10*3/uL (0.0-0.87); Eosinophils % 1.5 % (0.00-10.9); Hematocrit 38.5 VOL% (35.7-47.0); Hemoglobin 12.5 GM/DL (12.0-16.0); Immature Granulocytes % 0.2 %; Immature Granulocytes Absolute 0.01 #; Lymphocytes # 1.3 10*3/uL (1.4-4.0); Lymphocytes % 28.1 % (21.3-54.2); Mean Corpuscular HGB Conc 32.5 GM/DL (32-36); Mean Corpuscular Volume 83.7 FL (87-102); Mean Platelet Volume 11.6 FL (9.6-12.0); Monocytes % 13.4 % (1.7-12.7); Neutrophils % 56.4 % (38.7-73.9); Platelet Count 176 T/CUMM (130-400); Red Cell Distribution Width 17.5 % (9.3-17.3); White Blood Count 4.7 T/CUMM (4-12)
[2019-04-22 05:37] LABS: Osmolality,Calculated 279.3 MOS/KG (273-304)
[2019-04-22] MEDS: INSULIN LISPRO 100 UNIT/ML SUBCUT SCH ×2 (08:01→12:38)
[2019-04-22] MEDS: POTASSIUM CHLORIDE 10 MEQ TABLET PO SCH (08:22)
[2019-04-22] MEDS: busPIRone 5 MG TABLET PO SCH (08:22)
[2019-04-22] MEDS: DIGOXIN 0.125 MG TABLET PO SCH (08:22)
[2019-04-22] MEDS: ASPIRIN 325 MG TABLET PO SCH (08:22)
[2019-04-22] MEDS: PANTOPRAZOLE 40 MG TABLET PO SCH (08:22)
[2019-04-22] MEDS: levETIRAcetam 500 MG TABLET PO SCH (08:22)
[2019-04-22] MEDS: METOPROLOL TARTRATE 25 MG TABLET PO SCH (08:22)
[2019-04-22] MEDS: RIVAROXABAN 20 MG TABLET PO SCH (08:23)
[2019-04-22] MEDS: DILTIAZEM CD 120 MG CAPSULE PO SCH (08:23)
[2019-04-22] MEDS: GABAPENTIN 100 MG CAPSULE PO SCH (08:23)
[2019-04-22] MEDS: CHLORTHALIDONE 25 MG TABLET PO SCH (08:23)
[2019-04-22] MEDS ORDERED: MAGNESIUM HYDROXIDE SUSP 30 ML UDCUP PO PRN (09:12)
[2019-04-22] MEDS: POTASSIUM CHLORIDE RIDER 10 MEQ in PREMIX 1 EACH IV PRN (09:49)
[2019-04-22 11:52] VITALS: BP 138/59
== END 2019-04-22 13:23 | DRG 65 ==
LOC: EDBD → EDUNIT# → N.ED 10:44 → SUATTDRO 12:12 → N.EDINP 12:12 → N.5E 14:44
PROVIDERS: ADMIT Nurse Practitioner Family; ATTEND Internal Medicine

== ENCOUNTER 2019-05-05 12:06 | Inpatient (IN) ==
[2019-05-05 13:15] LABS: Basophils # 0.1 10*3/uL (0.0-0.2); Basophils % 0.2 % (0.0-0.8); Eosinophils % 0.1 % (0.00-10.9); Hematocrit 39.1 VOL% (35.7-47.0); Hemoglobin 12.1 GM/DL (12.0-16.0); Immature Granulocytes Absolute 0.21 #; Lymphocytes # 1.1 10*3/uL (1.4-4.0); Lymphocytes % 5.1 % (21.3-54.2); Mean Corpuscular HGB Conc 30.9 GM/DL (32-36); Mean Corpuscular Volume 85.6 FL (87-102); Mean Platelet Volume 11.1 FL (9.6-12.0); Monocytes % 6.6 % (1.7-12.7); Platelet Count 145 T/CUMM (130-400); Red Blood Count 4.57 MC/CUMM (3.8-5.5); Red Cell Distribution Width 17.6 % (9.3-17.3); White Blood Count 20.8 T/CUMM (4-12)
[2019-05-05 13:44] LABS: Albumin 2.9 G/DL (3.4-5.0); Bilirubin,Total 0.5 MG/DL (0.2-1.0); Osmolality,Calculated 283.7 MOS/KG (273-304); Total Protein 6.7 G/DL (6.4-8.3)
[2019-05-05 13:50] LABS: Apearance,Urine CLOUDY (Clear); Bacteria,Urine Moderate /HPF (Few); Bilirubin,Urine Negative (Negative); Blood, Urine Large mg/dL (Negative); Glucose,Urine (UA) Negative (Negative); Granular Casts,Urine 86 /LPF (0-1); Ketones,Urine Negative (Negative); Nitrite,Urine Negative (Negative); Protein,Urine 30 MG/DL; RBC,Urine 608 /HPF (0-4); Urine Color Amber (Yellow); Urine Specific Gravity 1.012 (1.001-1.035); Urine Urobilinogen < 2.0 EU/DL (0.2-1.0); WBC,Urine 292 /HPF (0-6)
[2019-05-05] MEDS ORDERED: SODIUM CHLORIDE 0.9% 2,400 ML IV ONE (13:56)
[2019-05-05] MEDS ORDERED: MEROPENEM 1,000 MG VIAL IV ONE (13:58)
[2019-05-05] MEDS ORDERED: SODIUM CHLORIDE 0.9% 100 ML IV ONE (13:59)
[2019-05-05] MEDS ORDERED: MEROPENEM 1,000 MG in SODIUM CHLORIDE 0.9% 100 ML IV SCH (14:00)
[2019-05-05] MEDS ORDERED: PROMETHAZINE 25 MG/1 ML VIAL IM PRN (14:15)
[2019-05-05] MEDS ORDERED: ONDANSETRON 4 MG/2 ML VIAL IV PRN (14:15)
[2019-05-05] MEDS ORDERED: MORPHINE 4 MG/1 ML VIAL IV PRN (14:15)
[2019-05-05] MEDS ORDERED: DICLOFENAC 1% GEL 100 GM TUBE TOP PRN (14:20)
[2019-05-05] MEDS ORDERED: MAGNESIUM SULF RIDER 2 GM in PREMIX 1 EACH IV ONE (14:22)
[2019-05-05] MEDS ORDERED: ENOXAPARIN 40 MG/0.4 ML SYRINGE SUBCUT SCH (14:30)
[2019-05-05] MEDS ORDERED: CEFEPIME 2,000 MG in SODIUM CHLORIDE 0.9% 100 ML IV SCH (15:00)
[2019-05-05] MEDS ORDERED: DEXTROSE 50% 25 GM/50 ML VIAL IV PRN (15:00)
[2019-05-05] MEDS ORDERED: GLUCAGON 1 MG VIAL IM PRN (15:00)
[2019-05-05] MEDS: INSULIN LISPRO 100 UNIT/ML SUBCUT SCH ×2 (16:42→23:21)
[2019-05-05] MEDS: GABAPENTIN 100 MG CAPSULE PO SCH ×2 (17:12→23:20)
[2019-05-05 18:28] LABS: Band Neutrophils 3 % (0-10); Lymphocytes 3 % (20-55); Platelet Estimate Normal; Segmented Neutrophils 90 % (50-85); Total Cells Counted 100
[2019-05-05] MEDS: PANTOPRAZOLE 40 MG TABLET PO SCH (19:32)
[2019-05-05] MEDS: cefTRIAXone 1,000 MG in SYRINGE 1 EACH IV SCH (20:23)
[2019-05-05] MEDS: LACTATED RINGERS 1,000 ML IV SCH ×2 (20:32→22:00)
[2019-05-05] MEDS: ACETAMINOPHEN 325 MG TABLET PO PRN (20:33)
[2019-05-05] MEDS: levETIRAcetam 500 MG TABLET PO SCH (23:18)
[2019-05-05] MEDS: busPIRone 10 MG TABLET PO SCH (23:19)
[2019-05-05] MEDS: LACTOBACILLUS ACIDOPHILUS/BULGARICUS CAPLET PO SCH (23:19)
[2019-05-05] MEDS: ATORVASTATIN 40 MG TABLET PO SCH (23:19)
[2019-05-05] MEDS: METOPROLOL TARTRATE 25 MG TABLET PO SCH (23:20)
[2019-05-06] MEDS: ACETAMINOPHEN 325 MG TABLET PO PRN (04:32)
[2019-05-06 05:40] LABS: Basophils % 0.2 % (0.0-0.8); Eosinophils % 0.2 % (0.00-10.9); Hematocrit 34.8 VOL% (35.7-47.0); Hemoglobin 11.1 GM/DL (12.0-16.0); Immature Granulocytes % 0.6 %; Immature Granulocytes Absolute 0.07 #; Lymphocytes # 0.3 10*3/uL (1.4-4.0); Lymphocytes % 2.3 % (21.3-54.2); Mean Corpuscular HGB Conc 31.9 GM/DL (32-36); Mean Corpuscular Volume 84.3 FL (87-102); Mean Platelet Volume 12.5 FL (9.6-12.0); Monocytes % 0.9 % (1.7-12.7); Neutrophils % 95.8 % (38.7-73.9); Platelet Count 102 T/CUMM (130-400); Red Blood Count 4.13 MC/CUMM (3.8-5.5); Red Cell Distribution Width 17.7 % (9.3-17.3)
[2019-05-06 06:00] LABS: Calcium 8.9 MG/DL (8.5-10.1); Osmolality,Calculated 280.7 MOS/KG (273-304)
[2019-05-06 06:26] LABS: Band Neutrophils 10 % (0-10); Lymphocytes 4 % (20-55); Segmented Neutrophils 86 % (50-85); Total Cells Counted 100
[2019-05-06 06:27] LABS: Acanthocytes Few; Anisocytosis 1+; Ovalocytes Few; Platelet Estimate Adequate
[2019-05-06] MEDS: ASPIRIN 325 MG TABLET PO SCH (09:16)
[2019-05-06] MEDS: GABAPENTIN 100 MG CAPSULE PO SCH ×4 (09:17→21:59)
[2019-05-06] MEDS: DIGOXIN 0.125 MG TABLET PO SCH (09:17)
[2019-05-06] MEDS: LACTOBACILLUS ACIDOPHILUS/BULGARICUS CAPLET PO SCH ×3 (09:17→21:58)
[2019-05-06] MEDS: METOPROLOL TARTRATE 25 MG TABLET PO SCH ×2 (09:17→21:44)
[2019-05-06] MEDS: busPIRone 10 MG TABLET PO SCH ×3 (09:17→21:58)
[2019-05-06] MEDS: DILTIAZEM CD 120 MG CAPSULE PO SCH (09:23)
[2019-05-06] MEDS: levETIRAcetam 500 MG TABLET PO SCH ×3 (09:23→21:58)
[2019-05-06] MEDS: PANTOPRAZOLE 40 MG TABLET PO SCH (09:23)
[2019-05-06] MEDS: RIVAROXABAN 20 MG TABLET PO SCH (09:23)
[2019-05-06] MEDS: INSULIN LISPRO 100 UNIT/ML SUBCUT SCH ×5 (09:29→21:57)
[2019-05-06] MEDS: cefTRIAXone 1,000 MG in SYRINGE 1 EACH IV SCH (15:20)
[2019-05-06] MEDS: LACTATED RINGERS 1,000 ML IV SCH (21:41)
[2019-05-06] MEDS: ATORVASTATIN 40 MG TABLET PO SCH (21:42)
[2019-05-07] MEDS ORDERED: ACETAMINOPHEN 650 MG SUPP RECTAL PRN (05:21)
[2019-05-07 05:32] LABS: Basophils % 0.1 % (0.0-0.8); Eosinophils # 0.1 10*3/uL (0.0-0.87); Eosinophils % 0.6 % (0.00-10.9); Hematocrit 29.7 VOL% (35.7-47.0); Hemoglobin 9.5 GM/DL (12.0-16.0); Immature Granulocytes % 0.9 %; Immature Granulocytes Absolute 0.08 #; Lymphocytes # 0.6 10*3/uL (1.4-4.0); Lymphocytes % 6.7 % (21.3-54.2); Mean Corpuscular Volume 84.4 FL (87-102); Mean Platelet Volume 12.4 FL (9.6-12.0); Monocytes % 10.1 % (1.7-12.7); Neutrophils % 81.6 % (38.7-73.9); Platelet Count 93 T/CUMM (130-400); Red Blood Count 3.52 MC/CUMM (3.8-5.5); Red Cell Distribution Width 18.2 % (9.3-17.3); White Blood Count 9.3 T/CUMM (4-12)
[2019-05-07 05:58] LABS: Band Neutrophils 2 % (0-10); Eosinophils 2 % (0-10); Lymphocytes 1 % (20-55); Segmented Neutrophils 90 % (50-85); Total Cells Counted 100
[2019-05-07 05:59] LABS: Anisocytosis 1+
[2019-05-07 06:00] LABS: Ovalocytes 1+; Platelet Estimate Decreased
[2019-05-07 06:04] LABS: Calcium 8.6 MG/DL (8.5-10.1); Osmolality,Calculated 284.1 MOS/KG (273-304)
[2019-05-07] MEDS: INSULIN LISPRO 100 UNIT/ML SUBCUT SCH ×4 (07:42→21:14)
[2019-05-07] MEDS ORDERED: MAGNESIUM SULF RIDER 2 GM in PREMIX 1 EACH IV ONE (09:00)
[2019-05-07] MEDS ORDERED: POTASSIUM CHLORIDE 20 MEQ TABLET PO ONE (09:00)
[2019-05-07] MEDS: ASPIRIN 325 MG TABLET PO SCH (09:24)
[2019-05-07] MEDS: busPIRone 10 MG TABLET PO SCH ×2 (09:24→20:43)
[2019-05-07] MEDS: GABAPENTIN 100 MG CAPSULE PO SCH ×3 (09:25→20:43)
[2019-05-07] MEDS: DIGOXIN 0.125 MG TABLET PO SCH (09:25)
[2019-05-07] MEDS: LACTOBACILLUS ACIDOPHILUS/BULGARICUS CAPLET PO SCH ×2 (09:25→20:43)
[2019-05-07] MEDS: METOPROLOL TARTRATE 25 MG TABLET PO SCH ×2 (09:25→20:43)
[2019-05-07] MEDS: RIVAROXABAN 20 MG TABLET PO SCH (09:26)
[2019-05-07] MEDS: levETIRAcetam 500 MG TABLET PO SCH ×2 (09:26→20:43)
[2019-05-07] MEDS: PANTOPRAZOLE 40 MG TABLET PO SCH (09:26)
[2019-05-07] MEDS: cefTRIAXone 2,000 MG in SYRINGE 1 EACH IV SCH (09:27)
[2019-05-07] MEDS: DILTIAZEM CD 120 MG CAPSULE PO SCH (09:27)
[2019-05-07] MEDS: ATORVASTATIN 40 MG TABLET PO SCH (20:43)
[2019-05-08 04:46] LABS: Basophils % 0.2 % (0.0-0.8); Eosinophils # 0.1 10*3/uL (0.0-0.87); Hematocrit 30.3 VOL% (35.7-47.0); Hemoglobin 9.8 GM/DL (12.0-16.0); Immature Granulocytes % 0.5 %; Immature Granulocytes Absolute 0.04 #; Lymphocytes % 12.2 % (21.3-54.2); Mean Corpuscular HGB Conc 32.3 GM/DL (32-36); Mean Corpuscular Volume 83.9 FL (87-102); Mean Platelet Volume 12.8 FL (9.6-12.0); Monocytes % 13.3 % (1.7-12.7); Neutrophils % 72.8 % (38.7-73.9); Platelet Count 104 T/CUMM (130-400); Red Blood Count 3.61 MC/CUMM (3.8-5.5); Red Cell Distribution Width 18.4 % (9.3-17.3); White Blood Count 8.2 T/CUMM (4-12)
[2019-05-08 05:01] LABS: Calcium 8.8 MG/DL (8.5-10.1); Osmolality,Calculated 285.8 MOS/KG (273-304)
[2019-05-08] MEDS ORDERED: MAGNESIUM SULF RIDER 2 GM in PREMIX 1 EACH IV ONE (09:00)
[2019-05-08] MEDS: levETIRAcetam 500 MG TABLET PO SCH ×2 (10:42→21:10)
[2019-05-08] MEDS: DILTIAZEM CD 120 MG CAPSULE PO SCH (11:02)
[2019-05-08] MEDS: LACTOBACILLUS ACIDOPHILUS/BULGARICUS CAPLET PO SCH ×2 (11:41→21:11)
[2019-05-08] MEDS: RIVAROXABAN 20 MG TABLET PO SCH (11:41)
[2019-05-08] MEDS: busPIRone 10 MG TABLET PO SCH ×2 (11:41→21:12)
[2019-05-08] MEDS: cefTRIAXone 2,000 MG in SYRINGE 1 EACH IV SCH (11:50)
[2019-05-08] MEDS: METOPROLOL TARTRATE 25 MG TABLET PO SCH ×2 (11:50→21:12)
[2019-05-08] MEDS: ASPIRIN 325 MG TABLET PO SCH (11:50)
[2019-05-08] MEDS: PANTOPRAZOLE 40 MG TABLET PO SCH (11:51)
[2019-05-08] MEDS: GABAPENTIN 100 MG CAPSULE PO SCH ×3 (11:54→21:12)
[2019-05-08] MEDS: DIGOXIN 0.125 MG TABLET PO SCH (11:54)
[2019-05-08] MEDS: INSULIN LISPRO 100 UNIT/ML SUBCUT SCH ×4 (12:35→22:52)
[2019-05-08] MEDS: ATORVASTATIN 40 MG TABLET PO SCH (21:11)
[2019-05-09] MEDS: INSULIN LISPRO 100 UNIT/ML SUBCUT SCH ×4 (07:43→21:24)
[2019-05-09] MEDS: DILTIAZEM CD 120 MG CAPSULE PO SCH (10:14)
[2019-05-09] MEDS: levETIRAcetam 500 MG TABLET PO SCH ×2 (10:14→21:27)
[2019-05-09] MEDS: DIGOXIN 0.125 MG TABLET PO SCH (10:15)
[2019-05-09] MEDS: RIVAROXABAN 20 MG TABLET PO SCH (10:15)
[2019-05-09] MEDS: METOPROLOL TARTRATE 25 MG TABLET PO SCH ×2 (10:15→21:29)
[2019-05-09] MEDS: LACTOBACILLUS ACIDOPHILUS/BULGARICUS CAPLET PO SCH ×2 (10:15→21:28)
[2019-05-09] MEDS: busPIRone 10 MG TABLET PO SCH ×2 (10:15→21:28)
[2019-05-09] MEDS: ASPIRIN 325 MG TABLET PO SCH (10:16)
[2019-05-09] MEDS: cefTRIAXone 2,000 MG in SYRINGE 1 EACH IV SCH (10:17)
[2019-05-09] MEDS: LOSARTAN 25 MG TABLET PO SCH (10:27)
[2019-05-09] MEDS: POTASSIUM CHLORIDE 10 MEQ TABLET PO SCH (10:27)
[2019-05-09] MEDS: CHLORTHALIDONE 25 MG TABLET PO SCH (10:28)
[2019-05-09] MEDS: PANTOPRAZOLE 40 MG TABLET PO SCH (10:28)
[2019-05-09] MEDS: GABAPENTIN 100 MG CAPSULE PO SCH ×3 (10:28→21:29)
[2019-05-09] MEDS: ATORVASTATIN 40 MG TABLET PO SCH (21:26)
[2019-05-10 05:01] LABS: Basophils % 0.3 % (0.0-0.8); Eosinophils % 0.3 % (0.00-10.9); Hematocrit 35.2 VOL% (35.7-47.0); Hemoglobin 10.7 GM/DL (12.0-16.0); Immature Granulocytes % 0.9 %; Immature Granulocytes Absolute 0.08 #; Lymphocytes # 1.4 10*3/uL (1.4-4.0); Lymphocytes % 16.4 % (21.3-54.2); Mean Corpuscular HGB Conc 30.4 GM/DL (32-36); Mean Platelet Volume 11.9 FL (9.6-12.0); Monocytes % 14.4 % (1.7-12.7); Neutrophils % 67.7 % (38.7-73.9); Platelet Count 137 T/CUMM (130-400); White Blood Count 8.7 T/CUMM (4-12)
[2019-05-10 05:04] LABS: Calcium 8.7 MG/DL (8.5-10.1); Osmolality,Calculated 275.4 MOS/KG (273-304)
[2019-05-10 06:09] LABS: Eosinophils 1 % (0-10); Hypochromasia 2+; Lymphocytes 16 % (20-55); Platelet Estimate Decreased; Segmented Neutrophils 70 % (50-85); Total Cells Counted 100
[2019-05-10] MEDS ORDERED: MAGNESIUM SULF RIDER 2 GM in PREMIX 1 EACH IV ONE (07:22)
[2019-05-10] MEDS: PANTOPRAZOLE 40 MG TABLET PO SCH (09:46)
[2019-05-10] MEDS: LOSARTAN 25 MG TABLET PO SCH (09:46)
[2019-05-10] MEDS: CHLORTHALIDONE 25 MG TABLET PO SCH (09:46)
[2019-05-10] MEDS: LACTOBACILLUS ACIDOPHILUS/BULGARICUS CAPLET PO SCH ×2 (09:46→21:11)
[2019-05-10] MEDS: POTASSIUM CHLORIDE 10 MEQ TABLET PO SCH (09:46)
[2019-05-10] MEDS: levETIRAcetam 500 MG TABLET PO SCH ×2 (09:47→21:09)
[2019-05-10] MEDS: RIVAROXABAN 20 MG TABLET PO SCH (09:48)
[2019-05-10] MEDS: DILTIAZEM CD 120 MG CAPSULE PO SCH (09:48)
[2019-05-10] MEDS: busPIRone 10 MG TABLET PO SCH ×2 (09:49→21:10)
[2019-05-10] MEDS: GABAPENTIN 100 MG CAPSULE PO SCH ×3 (09:49→21:11)
[2019-05-10] MEDS: ASPIRIN 325 MG TABLET PO SCH (09:49)
[2019-05-10] MEDS: DIGOXIN 0.125 MG TABLET PO SCH (09:50)
[2019-05-10] MEDS: INSULIN LISPRO 100 UNIT/ML SUBCUT SCH ×4 (11:17→21:20)
[2019-05-10] MEDS: cefTRIAXone 2,000 MG in SYRINGE 1 EACH IV SCH (11:27)
[2019-05-10] MEDS: METOPROLOL TARTRATE 25 MG TABLET PO SCH ×2 (11:48→21:10)
[2019-05-10] MEDS: ATORVASTATIN 40 MG TABLET PO SCH (21:09)
[2019-05-11 05:41] LABS: Basophils % 0.2 % (0.0-0.8); Eosinophils % 0.4 % (0.00-10.9); Hematocrit 33.2 VOL% (35.7-47.0); Hemoglobin 10.6 GM/DL (12.0-16.0); Immature Granulocytes % 0.6 %; Immature Granulocytes Absolute 0.05 #; Lymphocytes # 1.4 10*3/uL (1.4-4.0); Lymphocytes % 16.3 % (21.3-54.2); Mean Corpuscular HGB Conc 31.9 GM/DL (32-36); Mean Corpuscular Volume 83.4 FL (87-102); Mean Platelet Volume 11.7 FL (9.6-12.0); Monocytes % 10.1 % (1.7-12.7); Neutrophils % 72.4 % (38.7-73.9); Platelet Count 202 T/CUMM (130-400); Red Blood Count 3.98 MC/CUMM (3.8-5.5); Red Cell Distribution Width 18.1 % (9.3-17.3); White Blood Count 8.4 T/CUMM (4-12)
[2019-05-11 06:01] LABS: Calcium 8.8 MG/DL (8.5-10.1); Osmolality,Calculated 280.3 MOS/KG (273-304)
[2019-05-11 06:06] LABS: Hypochromasia 1+; Microcytosis 1+; Ovalocytes Slight; Target Cells Slight
[2019-05-11 06:07] LABS: Platelet Estimate Normal
[2019-05-11] MEDS: INSULIN LISPRO 100 UNIT/ML SUBCUT SCH ×2 (08:25→15:20)
[2019-05-11] MEDS: busPIRone 10 MG TABLET PO SCH (08:26)
[2019-05-11] MEDS: LACTOBACILLUS ACIDOPHILUS/BULGARICUS CAPLET PO SCH (08:26)
[2019-05-11] MEDS: METOPROLOL TARTRATE 25 MG TABLET PO SCH (08:26)
[2019-05-11] MEDS: ASPIRIN 325 MG TABLET PO SCH (08:27)
[2019-05-11] MEDS: RIVAROXABAN 20 MG TABLET PO SCH (08:27)
[2019-05-11] MEDS: DIGOXIN 0.125 MG TABLET PO SCH (08:27)
[2019-05-11] MEDS: CHLORTHALIDONE 25 MG TABLET PO SCH (08:27)
[2019-05-11] MEDS: LOSARTAN 25 MG TABLET PO SCH (08:27)
[2019-05-11] MEDS: DILTIAZEM CD 120 MG CAPSULE PO SCH (08:27)
[2019-05-11] MEDS: levETIRAcetam 500 MG TABLET PO SCH (08:28)
[2019-05-11] MEDS: PANTOPRAZOLE 40 MG TABLET PO SCH (08:28)
[2019-05-11] MEDS: cefTRIAXone 2,000 MG in SYRINGE 1 EACH IV SCH (08:28)
[2019-05-11] MEDS: POTASSIUM CHLORIDE 10 MEQ TABLET PO SCH (08:28)
[2019-05-11] MEDS: GABAPENTIN 100 MG CAPSULE PO SCH (08:28)
[2019-05-11 12:35] VITALS: BP 141/57
== END 2019-05-11 13:50 | disposition home health service (06) | DRG 871 ==
LOC: N.ED 12:06 → SUATTDRO 14:15 → N.2E 14:15
PROVIDERS: ADMIT Family Medicine; ATTEND Internal Medicine

== ENCOUNTER 2019-05-27 10:55 | Inpatient (IN) ==
[2019-05-27 12:01] LABS: Basophils % 0.3 % (0.0-0.8); Eosinophils % 0.3 % (0.00-10.9); Hematocrit 39.5 VOL% (35.7-47.0); Hemoglobin 12.4 GM/DL (12.0-16.0); Immature Granulocytes % 0.4 %; Immature Granulocytes Absolute 0.03 #; Lymphocytes # 1.6 10*3/uL (1.4-4.0); Lymphocytes % 23.2 % (21.3-54.2); Mean Corpuscular HGB Conc 31.4 GM/DL (32-36); Mean Corpuscular Volume 85.3 FL (87-102); Mean Platelet Volume 10.3 FL (9.6-12.0); Monocytes % 12.9 % (1.7-12.7); Neutrophils % 62.9 % (38.7-73.9); Platelet Count 243 T/CUMM (130-400); Red Blood Count 4.63 MC/CUMM (3.8-5.5); White Blood Count 6.7 T/CUMM (4-12)
[2019-05-27 12:11] LABS: Apearance,Urine CLEAR (Clear); Bilirubin,Urine Negative (Negative); Blood, Urine Moderate mg/dL (Negative); Glucose,Urine (UA) Negative (Negative); Hyaline Casts,Urine 1 /LPF (0-3); Ketones,Urine 5 mg/dL (Negative); Mucus,Urine Occasional /LPF (Occasional); Nitrite,Urine Negative (Negative); Protein,Urine 30 MG/DL; RBC,Urine 14 /HPF (0-4); Squamous Epithelial Cell,Urine Occasional /HPF (0-10); Urine Color Yellow (Yellow); Urine Specific Gravity 1.016 (1.001-1.035); Urine Urobilinogen < 2.0 EU/DL (0.2-1.0); WBC,Urine 16 /HPF (0-6)
[2019-05-27 12:16] LABS: INR 1.1; Partial Thromboplastin Time 27.4 SECS (0-40)
[2019-05-27 12:17] LABS: Albumin 3.5 G/DL (3.4-5.0); Bilirubin,Total 0.7 MG/DL (0.2-1.0); Calcium 9.1 MG/DL (8.5-10.1); Osmolality,Calculated 276.5 MOS/KG (273-304); Total Protein 8.3 G/DL (6.4-8.3)
[2019-05-27] MEDS ORDERED: ONDANSETRON 4 MG/2 ML VIAL IV PRN (13:41)
[2019-05-27] MEDS ORDERED: BISACODYL 5 MG TABLET PO PRN (13:41)
[2019-05-27] MEDS ORDERED: cefTRIAXone 1,000 MG in SYRINGE 1 EACH IV SCH (14:00)
[2019-05-27 15:17] LABS: Risk Ratio 3.61; VLDL CHOLESTEROL 25.4 MG/DL
[2019-05-27] MEDS ORDERED: DICLOFENAC 1% GEL 100 GM TUBE TOP PRN (15:25)
[2019-05-27] MEDS ORDERED: DOCUSATE SODIUM 100 MG CAPSULE PO PRN (15:25)
[2019-05-27] MEDS ORDERED: LORazepam 2 MG/1 ML VIAL ONE (16:42)
[2019-05-27] MEDS ORDERED: LORazepam 2 MG/1 ML VIAL IV ONE (16:42)
[2019-05-27] MEDS ORDERED: PHENYTOIN INJ 1,000 MG in SODIUM CHLORIDE 0.9% 100 ML IV ONE (17:04)
[2019-05-27] MEDS: LOSARTAN 25 MG TABLET PO SCH (17:58)
[2019-05-27] MEDS: cefTRIAXone 1,000 MG in SYRINGE 1 EACH IV SCH (18:29)
[2019-05-27] MEDS ORDERED: levETIRAcetam 500 MG TABLET PO SCH (21:00)
[2019-05-27] MEDS ORDERED: APIXABAN 5 MG TABLET PO SCH (21:00)
[2019-05-27] MEDS: LACTOBACILLUS ACIDOPHILUS/BULGARICUS CAPLET PO SCH (21:59)
[2019-05-27] MEDS: CIPROFLOXACIN 500 MG TABLET PO SCH (22:00)
[2019-05-27] MEDS: METOPROLOL TARTRATE 25 MG TABLET PO SCH (22:00)
[2019-05-28] MEDS ORDERED: PHENYTOIN 100 MG/2 ML VIAL IV SCH (01:30)
[2019-05-28 04:52] LABS: Basophils % 0.6 % (0.0-0.8); Eosinophils # 0.1 10*3/uL (0.0-0.87); Hematocrit 36.1 VOL% (35.7-47.0); Hemoglobin 11.3 GM/DL (12.0-16.0); Immature Granulocytes % 0.4 %; Immature Granulocytes Absolute 0.02 #; Lymphocytes # 1.7 10*3/uL (1.4-4.0); Lymphocytes % 33.8 % (21.3-54.2); Mean Corpuscular HGB Conc 31.3 GM/DL (32-36); Mean Corpuscular Volume 85.7 FL (87-102); Mean Platelet Volume 10.8 FL (9.6-12.0); Monocytes % 16.7 % (1.7-12.7); Neutrophils % 47.5 % (38.7-73.9); Platelet Count 195 T/CUMM (130-400); Red Blood Count 4.21 MC/CUMM (3.8-5.5); Red Cell Distribution Width 18.3 % (9.3-17.3); White Blood Count 5.2 T/CUMM (4-12)
[2019-05-28 05:15] LABS: Calcium 8.7 MG/DL (8.5-10.1); Osmolality,Calculated 281.3 MOS/KG (273-304)
[2019-05-28 05:20] LABS: Eosinophils 4 % (0-10); Lymphocytes 32 % (20-55); Platelet Estimate Normal; Segmented Neutrophils 48 % (50-85); Total Cells Counted 100
[2019-05-28] MEDS: PHENYTOIN ER 100 MG CAPSULE PO SCH ×2 (14:01→14:11)
[2019-05-28] MEDS: POTASSIUM CHLORIDE 10 MEQ TABLET PO SCH (14:06)
[2019-05-28] MEDS: PANTOPRAZOLE 40 MG TABLET PO SCH (14:06)
[2019-05-28] MEDS: DIGOXIN 0.125 MG TABLET PO SCH (14:06)
[2019-05-28] MEDS: CIPROFLOXACIN 500 MG TABLET PO SCH ×2 (14:07→22:14)
[2019-05-28] MEDS: ASPIRIN 325 MG TABLET PO SCH (14:07)
[2019-05-28] MEDS: DILTIAZEM CD 120 MG CAPSULE PO SCH ×2 (14:07→14:54)
[2019-05-28] MEDS: LACTOBACILLUS ACIDOPHILUS/BULGARICUS CAPLET PO SCH ×2 (14:07→22:13)
[2019-05-28] MEDS: levETIRAcetam 500 MG TABLET PO SCH ×2 (14:07→22:13)
[2019-05-28] MEDS: METOPROLOL TARTRATE 25 MG TABLET PO SCH ×2 (14:07→22:13)
[2019-05-28] MEDS: LOSARTAN 25 MG TABLET PO SCH (14:11)
[2019-05-28] MEDS: CHLORTHALIDONE 25 MG TABLET PO SCH (14:11)
[2019-05-28] MEDS: SODIUM CHLORIDE 0.45% 1,000 ML IV SCH (14:11)
[2019-05-28] MEDS: RIVAROXABAN 20 MG TABLET PO SCH (14:11)
[2019-05-28] MEDS: PHENYTOIN 100 MG/4 ML UDCUP PO SCH ×2 (15:27→22:14)
[2019-05-28] MEDS: cefTRIAXone 1,000 MG in SYRINGE 1 EACH IV SCH (17:53)
[2019-05-29 05:39] LABS: Calcium 9.2 MG/DL (8.5-10.1); Osmolality,Calculated 275.7 MOS/KG (273-304)
[2019-05-29] MEDS: RIVAROXABAN 20 MG TABLET PO SCH (13:15)
[2019-05-29] MEDS: ASPIRIN 325 MG TABLET PO SCH (13:15)
[2019-05-29] MEDS: METOPROLOL TARTRATE 25 MG TABLET PO SCH ×2 (13:16→21:35)
[2019-05-29] MEDS: CHLORTHALIDONE 25 MG TABLET PO SCH (13:16)
[2019-05-29] MEDS: PANTOPRAZOLE 40 MG TABLET PO SCH (13:16)
[2019-05-29] MEDS: LACTOBACILLUS ACIDOPHILUS/BULGARICUS CAPLET PO SCH ×2 (13:16→21:34)
[2019-05-29] MEDS: LOSARTAN 25 MG TABLET PO SCH (13:16)
[2019-05-29] MEDS: DILTIAZEM CD 120 MG CAPSULE PO SCH (13:16)
[2019-05-29] MEDS: POTASSIUM CHLORIDE 10 MEQ TABLET PO SCH (13:16)
[2019-05-29] MEDS: levETIRAcetam 500 MG TABLET PO SCH ×2 (13:16→21:34)
[2019-05-29] MEDS: PHENYTOIN 100 MG/4 ML UDCUP PO SCH ×3 (13:16→21:34)
[2019-05-29] MEDS: DIGOXIN 0.125 MG TABLET PO SCH (13:16)
[2019-05-29] MEDS: CIPROFLOXACIN 500 MG TABLET PO SCH (13:16)
[2019-05-29] MEDS: SODIUM CHLORIDE 0.45% 1,000 ML IV SCH ×2 (13:17→15:14)
[2019-05-29] MEDS ORDERED: MAGNESIUM SULF RIDER 4 GM in PREMIX 1 EACH IV ONE (14:46)
[2019-05-29] MEDS ORDERED: MAGNESIUM SULF RIDER 2 GM in PREMIX 1 EACH IV ONE (14:54)
[2019-05-30] MEDS: DILTIAZEM CD 120 MG CAPSULE PO SCH (10:36)
[2019-05-30] MEDS: LACTOBACILLUS ACIDOPHILUS/BULGARICUS CAPLET PO SCH ×2 (10:36→20:40)
[2019-05-30] MEDS: PHENYTOIN 100 MG/4 ML UDCUP PO SCH ×3 (10:36→20:40)
[2019-05-30] MEDS: MULTIVITAMIN LIQUID (CENTRUM) 60 ML BOTTLE NG SCH (10:36)
[2019-05-30] MEDS: levETIRAcetam 500 MG TABLET PO SCH ×2 (10:37→20:40)
[2019-05-30] MEDS: LOSARTAN 25 MG TABLET PO SCH (10:37)
[2019-05-30] MEDS: POTASSIUM CHLORIDE 10 MEQ TABLET PO SCH (10:38)
[2019-05-30] MEDS: METOPROLOL TARTRATE 25 MG TABLET PO SCH ×2 (10:38→20:40)
[2019-05-30] MEDS: ASPIRIN 325 MG TABLET PO SCH (10:38)
[2019-05-30] MEDS: RIVAROXABAN 20 MG TABLET PO SCH (10:38)
[2019-05-30] MEDS: PANTOPRAZOLE 40 MG TABLET PO SCH (10:38)
[2019-05-30] MEDS: DIGOXIN 0.125 MG TABLET PO SCH (10:39)
[2019-05-30] MEDS: SODIUM CHLORIDE 0.45% 1,000 ML IV SCH (10:39)
[2019-05-30] MEDS: CHLORTHALIDONE 25 MG TABLET PO SCH (10:39)
[2019-05-31] MEDS: SODIUM CHLORIDE 0.45% 1,000 ML IV SCH (07:14)
[2019-05-31] MEDS: PHENYTOIN 100 MG/4 ML UDCUP PO SCH ×3 (09:23→20:23)
[2019-05-31] MEDS: DIGOXIN 0.125 MG TABLET PO SCH (09:24)
[2019-05-31] MEDS: levETIRAcetam 500 MG TABLET PO SCH ×2 (09:24→20:23)
[2019-05-31] MEDS: METOPROLOL TARTRATE 25 MG TABLET PO SCH ×2 (09:24→20:26)
[2019-05-31] MEDS: POTASSIUM CHLORIDE 10 MEQ TABLET PO SCH (09:24)
[2019-05-31] MEDS: ASPIRIN 325 MG TABLET PO SCH (09:24)
[2019-05-31] MEDS: LOSARTAN 25 MG TABLET PO SCH (09:24)
[2019-05-31] MEDS: LACTOBACILLUS ACIDOPHILUS/BULGARICUS CAPLET PO SCH ×2 (09:25→20:23)
[2019-05-31] MEDS: RIVAROXABAN 20 MG TABLET PO SCH (09:25)
[2019-05-31] MEDS: MULTIVITAMIN LIQUID (CENTRUM) 60 ML BOTTLE NG SCH (09:25)
[2019-05-31] MEDS: PANTOPRAZOLE 40 MG TABLET PO SCH (09:25)
[2019-05-31] MEDS: CHLORTHALIDONE 25 MG TABLET PO SCH (09:25)
[2019-05-31] MEDS: DILTIAZEM CD 120 MG CAPSULE PO SCH (09:25)
[2019-06-01] MEDS: SODIUM CHLORIDE 0.45% 1,000 ML IV SCH (02:24)
[2019-06-01 05:28] LABS: Prealbumin 16.4 MG/DL (20-40)
[2019-06-01] MEDS: DIGOXIN 0.125 MG TABLET PO SCH (09:29)
[2019-06-01] MEDS: LACTOBACILLUS ACIDOPHILUS/BULGARICUS CAPLET PO SCH ×2 (09:29→23:15)
[2019-06-01] MEDS: ASPIRIN 325 MG TABLET PO SCH (09:29)
[2019-06-01] MEDS: RIVAROXABAN 20 MG TABLET PO SCH (09:30)
[2019-06-01] MEDS: LOSARTAN 25 MG TABLET PO SCH (09:30)
[2019-06-01] MEDS: levETIRAcetam 500 MG TABLET PO SCH ×2 (09:30→23:16)
[2019-06-01] MEDS: CHLORTHALIDONE 25 MG TABLET PO SCH (09:30)
[2019-06-01] MEDS: DILTIAZEM CD 120 MG CAPSULE PO SCH (09:30)
[2019-06-01] MEDS: POTASSIUM CHLORIDE 10 MEQ TABLET PO SCH (09:30)
[2019-06-01] MEDS: METOPROLOL TARTRATE 25 MG TABLET PO SCH ×2 (09:30→23:16)
[2019-06-01] MEDS: MULTIVITAMIN LIQUID (CENTRUM) 60 ML BOTTLE NG SCH (09:31)
[2019-06-01] MEDS: PHENYTOIN 100 MG/4 ML UDCUP PO SCH ×3 (09:31→23:15)
[2019-06-01] MEDS: PANTOPRAZOLE 40 MG TABLET PO SCH (09:31)
[2019-06-01] MEDS ORDERED: MAGNESIUM SULF RIDER 2 GM in PREMIX 1 EACH IV ONE (13:08)
[2019-06-01] MEDS: ATORVASTATIN 80 MG TABLET PO SCH (17:36)
[2019-06-01] MEDS ORDERED: MAGNESIUM OXIDE 400 MG TABLET PO ONE (22:24)
[2019-06-02] MEDS: DIGOXIN 0.125 MG TABLET PO SCH (09:05)
[2019-06-02] MEDS: RIVAROXABAN 20 MG TABLET PO SCH (09:06)
[2019-06-02] MEDS: CHLORTHALIDONE 25 MG TABLET PO SCH (09:07)
[2019-06-02] MEDS: METOPROLOL TARTRATE 25 MG TABLET PO SCH ×2 (09:07→22:00)
[2019-06-02] MEDS: PANTOPRAZOLE 40 MG TABLET PO SCH (09:08)
[2019-06-02] MEDS: ATORVASTATIN 80 MG TABLET PO SCH (09:08)
[2019-06-02] MEDS: ASPIRIN 325 MG TABLET PO SCH (09:08)
[2019-06-02] MEDS: LOSARTAN 25 MG TABLET PO SCH (09:09)
[2019-06-02] MEDS: DILTIAZEM CD 120 MG CAPSULE PO SCH (09:11)
[2019-06-02] MEDS: levETIRAcetam 500 MG TABLET PO SCH ×2 (09:13→22:00)
[2019-06-02] MEDS: PHENYTOIN 100 MG/4 ML UDCUP PO SCH ×3 (09:14→22:00)
[2019-06-02] MEDS: POTASSIUM CHLORIDE 10 MEQ TABLET PO SCH (09:14)
[2019-06-02] MEDS: MULTIVITAMIN LIQUID (CENTRUM) 60 ML BOTTLE NG SCH (15:28)
[2019-06-02] MEDS: LACTOBACILLUS ACIDOPHILUS/BULGARICUS CAPLET PO SCH ×2 (15:28→22:00)
[2019-06-02] MEDS ORDERED: TUBERCULIN SKIN TEST 0.1 ML SYRINGE INTRADERM ONE (16:40)
[2019-06-02] MEDS: MAGNESIUM CHLORIDE 64 MG TABLET PO SCH (22:00)
[2019-06-03 04:44] LABS: Basophils % 0.7 % (0.0-0.8); Eosinophils # 0.1 10*3/uL (0.0-0.87); Eosinophils % 3.1 % (0.00-10.9); Hematocrit 38.5 VOL% (35.7-47.0); Hemoglobin 12.1 GM/DL (12.0-16.0); Immature Granulocytes % 0.2 %; Immature Granulocytes Absolute 0.01 #; Lymphocytes # 1.8 10*3/uL (1.4-4.0); Lymphocytes % 39.8 % (21.3-54.2); Mean Corpuscular HGB Conc 31.4 GM/DL (32-36); Mean Corpuscular Volume 86.3 FL (87-102); Mean Platelet Volume 11.4 FL (9.6-12.0); Monocytes % 11.4 % (1.7-12.7); Neutrophils % 44.8 % (38.7-73.9); Platelet Count 186 T/CUMM (130-400); Red Blood Count 4.46 MC/CUMM (3.8-5.5); Red Cell Distribution Width 17.5 % (9.3-17.3); White Blood Count 4.6 T/CUMM (4-12)
[2019-06-03 05:23] LABS: Calcium 9.4 MG/DL (8.5-10.1); Osmolality,Calculated 274.7 MOS/KG (273-304)
[2019-06-03] MEDS: PHENYTOIN 100 MG/4 ML UDCUP PO SCH ×3 (08:57→22:40)
[2019-06-03] MEDS: MULTIVITAMIN LIQUID (CENTRUM) 60 ML BOTTLE NG SCH (08:57)
[2019-06-03] MEDS: RIVAROXABAN 20 MG TABLET PO SCH (08:58)
[2019-06-03] MEDS: METOPROLOL TARTRATE 25 MG TABLET PO SCH ×2 (08:59→22:40)
[2019-06-03] MEDS: PANTOPRAZOLE 40 MG TABLET PO SCH (09:03)
[2019-06-03] MEDS: DIGOXIN 0.125 MG TABLET PO SCH (09:04)
[2019-06-03] MEDS: CHLORTHALIDONE 25 MG TABLET PO SCH (09:04)
[2019-06-03] MEDS: LOSARTAN 25 MG TABLET PO SCH (09:04)
[2019-06-03] MEDS: ASPIRIN 325 MG TABLET PO SCH (09:06)
[2019-06-03] MEDS: ATORVASTATIN 80 MG TABLET PO SCH (09:06)
[2019-06-03] MEDS: levETIRAcetam 500 MG TABLET PO SCH ×2 (09:07→22:40)
[2019-06-03] MEDS: LACTOBACILLUS ACIDOPHILUS/BULGARICUS CAPLET PO SCH ×2 (09:09→22:40)
[2019-06-03] MEDS: DILTIAZEM CD 120 MG CAPSULE PO SCH (09:09)
[2019-06-03] MEDS: MAGNESIUM CHLORIDE 64 MG TABLET PO SCH ×2 (09:10→22:40)
[2019-06-03] MEDS: POTASSIUM CHLORIDE 10 MEQ TABLET PO SCH (09:13)
[2019-06-04 05:55] LABS: Calcium 9.5 MG/DL (8.5-10.1); Osmolality,Calculated 279.4 MOS/KG (273-304)
[2019-06-04] MEDS: levETIRAcetam 500 MG TABLET PO SCH (08:39)
[2019-06-04] MEDS: PHENYTOIN 100 MG/4 ML UDCUP PO SCH ×2 (08:40→14:30)
[2019-06-04] MEDS: METOPROLOL TARTRATE 25 MG TABLET PO SCH (08:46)
[2019-06-04] MEDS: DILTIAZEM CD 120 MG CAPSULE PO SCH (08:47)
[2019-06-04] MEDS: RIVAROXABAN 20 MG TABLET PO SCH (08:47)
[2019-06-04] MEDS: LOSARTAN 25 MG TABLET PO SCH (08:50)
[2019-06-04] MEDS: ASPIRIN 325 MG TABLET PO SCH (08:51)
[2019-06-04] MEDS: CHLORTHALIDONE 25 MG TABLET PO SCH (08:54)
[2019-06-04] MEDS: DIGOXIN 0.125 MG TABLET PO SCH (08:54)
[2019-06-04] MEDS: PANTOPRAZOLE 40 MG TABLET PO SCH (08:57)
[2019-06-04] MEDS: ATORVASTATIN 80 MG TABLET PO SCH (08:57)
[2019-06-04] MEDS: MAGNESIUM CHLORIDE 64 MG TABLET PO SCH (09:02)
[2019-06-04] MEDS: POTASSIUM CHLORIDE 10 MEQ TABLET PO SCH (09:06)
[2019-06-04] MEDS: LACTOBACILLUS ACIDOPHILUS/BULGARICUS CAPLET PO SCH (09:06)
[2019-06-04] MEDS: MULTIVITAMIN LIQUID (CENTRUM) 60 ML BOTTLE NG SCH (09:07)
[2019-06-04 12:29] VITALS: BP 129/65
== END 2019-06-04 16:50 | DRG 65 ==
LOC: N.ED 10:55 → N.4E 13:41 → SUATTDRO 13:45 → N.4E 15:04
PROVIDERS: ADMIT Internal Medicine; ATTEND Internal Medicine

== ENCOUNTER 2019-07-23 11:18 | Observation (INO) ==
[2019-07-23] MEDS ORDERED: ASPIRIN 325 MG TABLET PO STA (11:38)
[2019-07-23 12:15] LABS: Basophils % 0.4 % (0.0-0.8); Eosinophils # 0.1 10*3/uL (0.0-0.87); Eosinophils % 1.5 % (0.00-10.9); Hematocrit 37.3 VOL% (35.7-47.0); Hemoglobin 12.4 GM/DL (12.0-16.0); Immature Granulocytes % 0.2 %; Immature Granulocytes Absolute 0.01 #; Lymphocytes # 1.5 10*3/uL (1.4-4.0); Lymphocytes % 28.5 % (21.3-54.2); Mean Corpuscular HGB Conc 33.2 GM/DL (32-36); Mean Corpuscular Volume 90.1 FL (87-102); Mean Platelet Volume 11.5 FL (9.6-12.0); Monocytes % 9.4 % (1.7-12.7); Platelet Count 161 T/CUMM (130-400); Red Blood Count 4.14 MC/CUMM (3.8-5.5); White Blood Count 5.2 T/CUMM (4-12)
[2019-07-23 12:39] LABS: Calcium 8.6 MG/DL (8.5-10.1); Osmolality,Calculated 278.4 MOS/KG (273-304)
[2019-07-23] MEDS ORDERED: POTASSIUM CHLORIDE 20 MEQ TABLET PO STA (13:50)
[2019-07-23] MEDS ORDERED: DILTIAZEM 25 MG/5 ML VIAL IV ONE (15:34)
[2019-07-23] MEDS ORDERED: DILTIAZEM 50 MG/10 ML VIAL IV STA (15:43)
[2019-07-23] MEDS ORDERED: ONDANSETRON 4 MG/2 ML VIAL IV PRN (16:30)
[2019-07-23] MEDS ORDERED: POTASSIUM CHLORIDE 20 MEQ TABLET PO PRN (16:30)
[2019-07-23] MEDS ORDERED: ACETAMINOPHEN 325 MG TABLET PO PRN (16:30)
[2019-07-23] MEDS ORDERED: MAGNESIUM SULF RIDER 2 GM in PREMIX 1 EACH IV PRN (16:30)
[2019-07-23] MEDS ORDERED: MORPHINE 4 MG/1 ML VIAL IV PRN (16:30)
[2019-07-23] MEDS ORDERED: ENOXAPARIN 100 MG/ML SYRINGE SUBCUT SCH (16:30)
[2019-07-23] MEDS ORDERED: dilTIAZem Drip 125 MG/125 ML PREMIX IV SCH (17:00)
[2019-07-23] MEDS: SODIUM CHLORIDE 0.45% 1,000 ML IV SCH (17:03)
[2019-07-23] MEDS ORDERED: GLUCAGON 1 MG VIAL IM PRN (18:45)
[2019-07-23] MEDS ORDERED: DEXTROSE 10% 250 ML BAG IV PRN (18:45)
[2019-07-23] MEDS: PHENYTOIN 100 MG/4 ML UDCUP PO SCH (23:14)
[2019-07-23] MEDS: levETIRAcetam 500 MG TABLET PO SCH (23:14)
[2019-07-23] MEDS: METOPROLOL TARTRATE 25 MG TABLET PO SCH (23:14)
[2019-07-23] MEDS: ATORVASTATIN 80 MG TABLET PO SCH (23:14)
[2019-07-23] MEDS: INSULIN LISPRO 100 UNIT/ML SUBCUT SCH (23:15)
[2019-07-24 06:08] LABS: Basophils % 0.6 % (0.0-0.8); Eosinophils # 0.1 10*3/uL (0.0-0.87); Eosinophils % 1.8 % (0.00-10.9); Hematocrit 36.6 VOL% (35.7-47.0); Hemoglobin 11.6 GM/DL (12.0-16.0); Immature Granulocytes % 0.2 %; Immature Granulocytes Absolute 0.01 #; Lymphocytes # 1.6 10*3/uL (1.4-4.0); Lymphocytes % 32.3 % (21.3-54.2); Mean Corpuscular HGB Conc 31.7 GM/DL (32-36); Mean Corpuscular Volume 92.9 FL (87-102); Mean Platelet Volume 11.3 FL (9.6-12.0); Monocytes % 10.5 % (1.7-12.7); Neutrophils % 54.6 % (38.7-73.9); Platelet Count 156 T/CUMM (130-400); Red Blood Count 3.94 MC/CUMM (3.8-5.5); Red Cell Distribution Width 17.1 % (9.3-17.3)
[2019-07-24] MEDS: SODIUM CHLORIDE 0.45% 1,000 ML IV SCH (06:49)
[2019-07-24 07:02] LABS: Calcium 8.2 MG/DL (8.5-10.1); Osmolality,Calculated 282.1 MOS/KG (273-304); Risk Ratio 1.7; Thyroid Stimulating Hormone 1.12 uIU/ml (0.358-3.74); VLDL CHOLESTEROL 11.2 MG/DL
[2019-07-24] MEDS ORDERED: RIVAROXABAN 20 MG TABLET PO SCH (08:00)
[2019-07-24] MEDS: INSULIN LISPRO 100 UNIT/ML SUBCUT SCH ×2 (08:53→12:44)
[2019-07-24] MEDS: METOPROLOL TARTRATE 25 MG TABLET PO SCH (08:55)
[2019-07-24] MEDS ORDERED: LOSARTAN 25 MG TABLET PO SCH (09:00)
[2019-07-24] MEDS ORDERED: PANTOPRAZOLE 40 MG TABLET PO SCH (09:00)
[2019-07-24] MEDS ORDERED: ASPIRIN 325 MG TABLET PO SCH (09:00)
[2019-07-24] MEDS ORDERED: DIGOXIN 0.125 MG TABLET PO SCH (09:00)
[2019-07-24] MEDS ORDERED: DILTIAZEM CD 120 MG CAPSULE PO SCH (09:00)
[2019-07-24] MEDS: PHENYTOIN 100 MG/4 ML UDCUP PO SCH (10:08)
[2019-07-24] MEDS: levETIRAcetam 500 MG TABLET PO SCH (10:09)
[2019-07-24] MEDS: ATORVASTATIN 80 MG TABLET PO SCH (10:09)
[2019-07-24 12:03] VITALS: BP 121/57
== END 2019-07-24 15:31 | disposition home or self-care (01) ==
LOC: N.EDINP 11:18 → N.ED 11:18 → N.TELEN 17:19
PROVIDERS: ADMIT Internal Medicine; ATTEND Internal Medicine

== ENCOUNTER 2019-08-06 10:41 | Observation (INO) ==
[2019-08-06] MEDS ORDERED: ASPIRIN 325 MG TABLET PO STA (11:31)
[2019-08-06 11:40] LABS: Basophils % 0.2 % (0.0-0.8); Eosinophils # 0.1 10*3/uL (0.0-0.87); Eosinophils % 1.2 % (0.00-10.9); Hematocrit 39.5 VOL% (35.7-47.0); Immature Granulocytes % 0.5 %; Immature Granulocytes Absolute 0.02 #; Lymphocytes # 1.4 10*3/uL (1.4-4.0); Lymphocytes % 34.3 % (21.3-54.2); Mean Corpuscular HGB Conc 32.9 GM/DL (32-36); Mean Platelet Volume 10.8 FL (9.6-12.0); Monocytes % 8.9 % (1.7-12.7); Neutrophils % 54.9 % (38.7-73.9); Platelet Count 183 T/CUMM (130-400); Red Blood Count 4.34 MC/CUMM (3.8-5.5); Red Cell Distribution Width 16.7 % (9.3-17.3); White Blood Count 4.1 T/CUMM (4-12)
[2019-08-06 12:02] LABS: Eosinophils 1 % (0-10); Lymphocytes 43 % (20-55); Platelet Estimate Normal; Segmented Neutrophils 49 % (50-85); Total Cells Counted 100
[2019-08-06 12:03] LABS: Anisocytosis 1+; Atypical Lymphocytes Few; Macrocytosis 1+
[2019-08-06 12:12] LABS: Alanine Aminotransferase 18 U/L (13-56); Alkaline Phosphatase 33 U/L (45-117); Aspartate Amino Transferase 28 U/L (0-37); Bilirubin,Total < 0.39 MG/DL (0.2-1.0); Blood Urea Nitrogen 7 MG/DL (7-18); Calcium 8.6 MG/DL (8.5-10.1); Estimated Glom Filtration Rate 104 ML/MIN; Glucose 120 MG/DL (74-106); Total Protein 6.7 G/DL (6.4-8.3)
[2019-08-06] MEDS ORDERED: POTASSIUM CHLORIDE 20 MEQ TABLET PO STA (12:55)
[2019-08-06 14:53] LABS: Apearance,Urine Slightly Hazy (Clear); Bilirubin,Urine Negative (Negative); Blood, Urine Large mg/dL (Negative); Glucose,Urine (UA) Negative (Negative); Ketones,Urine Negative (Negative); Nitrite,Urine Negative (Negative); Protein,Urine 100 MG/DL; RBC,Urine 2758 /HPF (0-4); Urine Color Red (Yellow); Urine Specific Gravity 1.016 (1.001-1.035); Urine Urobilinogen < 2.0 EU/DL (0.2-1.0); WBC,Urine 136 /HPF (0-6)
[2019-08-06] MEDS ORDERED: POTASSIUM CHLORIDE 20 MEQ TABLET PO PRN (15:40)
[2019-08-06] MEDS ORDERED: cefTRIAXone 1,000 MG in SYRINGE 1 EACH IV SCH (16:00)
[2019-08-06] MEDS ORDERED: MAGNESIUM SULF RIDER 1 GM in PREMIX 1 EACH IV ONE (16:03)
[2019-08-06] MEDS ORDERED: ENOXAPARIN 40 MG/0.4 ML SYRINGE SUBCUT SCH (17:00)
[2019-08-06 17:35] LABS: Risk Ratio 2.89; VLDL CHOLESTEROL 16.4 MG/DL
[2019-08-07 05:23] LABS: Albumin 2.6 G/DL (3.4-5.0); Calcium 8.5 MG/DL (8.5-10.1); Osmolality,Calculated 275.4 MOS/KG (273-304); Total Protein 5.9 G/DL (6.4-8.3)
[2019-08-07] MEDS ORDERED: METOPROLOL TARTRATE 25 MG TABLET PO SCH (10:30)
[2019-08-07] MEDS ORDERED: RIVAROXABAN 20 MG TABLET PO SCH (10:30)
[2019-08-07] MEDS ORDERED: ATORVASTATIN 80 MG TABLET PO SCH (10:30)
[2019-08-07] MEDS ORDERED: DIGOXIN 0.125 MG TABLET PO SCH (10:30)
[2019-08-07] MEDS ORDERED: DILTIAZEM CD 120 MG CAPSULE PO SCH (10:30)
[2019-08-07] MEDS ORDERED: LOSARTAN 25 MG TABLET PO SCH (10:30)
[2019-08-07] MEDS ORDERED: MAGNESIUM CHLORIDE 64 MG TABLET PO SCH (10:30)
[2019-08-07] MEDS ORDERED: POTASSIUM CHLORIDE 20 MEQ TABLET PO SCH (10:30)
[2019-08-07] MEDS ORDERED: ASPIRIN 325 MG TABLET PO SCH (10:30)
[2019-08-07] MEDS ORDERED: TUBERCULIN SKIN TEST 0.1 ML SYRINGE INTRADERM ONE (11:06)
[2019-08-07] MEDS ORDERED: GLUCAGON 1 MG VIAL IM PRN (11:43)
[2019-08-07] MEDS ORDERED: DEXTROSE 50% 25 GM/50 ML VIAL IV PRN (11:43)
[2019-08-07 12:12] VITALS: BP 172/79
== END 2019-08-07 15:35 | disposition hospice, home (50) ==
LOC: N.EDINP 10:41 → N.ED 10:41 → N.TELES 15:55
PROVIDERS: ADMIT Emergency Medicine; ATTEND Emergency Medicine

== ENCOUNTER 2020-10-12 15:13 | Inpatient (IN) ==
[2020-10-12] MEDS ORDERED: MAGNESIUM SULF RIDER 2 GM in PREMIX 1 EACH IV STA (16:29)
[2020-10-12] MEDS ORDERED: SODIUM CHLORIDE 0.9% 1,000 ML IV STA (16:29)
[2020-10-12 16:49] LABS: Alanine Aminotransferase 29 U/L (13-56); Alkaline Phosphatase 49 U/L (45-117); Aspartate Amino Transferase 32 U/L (0-37); Bilirubin,Total < 0.39 MG/DL (0.2-1.0); Blood Urea Nitrogen 7 MG/DL (7-18); Estimated Glom Filtration Rate 89 ML/MIN; Glucose 86 MG/DL (74-106); Osmolality,Calculated 273.5 MOS/KG (273-304); Total Protein 6.6 G/DL (6.4-8.3)
[2020-10-12 17:25] LABS: Bacteria,Urine Moderate /HPF (Few); Bilirubin,Urine Negative (Negative); Blood, Urine Negative (Negative); Glucose,Urine (UA) Negative (Negative); Ketones,Urine Negative (Negative); Mucus,Urine Occasional /LPF (Occasional); Nitrite,Urine Positive (Negative); Protein,Urine Negative; RBC,Urine 1 /HPF (0-4); Urine Appearance CLEAR (Clear); Urine Color Yellow (Yellow); Urine Specific Gravity 1.014 (1.001-1.035); Urine Urobilinogen < 2.0 EU/DL (0.2-1.0); WBC,Urine 1 /HPF (0-6)
[2020-10-12 17:30] LABS: Hematocrit 38.3 VOL% (35.7-47.0); Hemoglobin 12.3 GM/DL (12.0-16.0); Mean Corpuscular HGB Conc 32.1 GM/DL (32-36); Mean Corpuscular Volume 95.3 FL (87-102); Platelet Count 178 T/CUMM (130-400); Red Blood Count 4.02 MC/CUMM (3.8-5.5); Red Cell Distribution Width 14.6 % (9.3-17.3); White Blood Count 6.2 T/CUMM (4-12)
[2020-10-12 17:31] LABS: Basophils % 0.5 % (0.0-0.8); Eosinophils % 0.3 % (0.00-10.9); Immature Granulocytes % 0.2 %; Immature Granulocytes Absolute 0.01 #; Lymphocytes # 1.7 10*3/uL (1.4-4.0); Lymphocytes % 26.8 % (21.3-54.2); Mean Platelet Volume 10.5 FL (9.6-12.0); Monocytes % 16.3 % (1.7-12.7); Neutrophils % 55.9 % (38.7-73.9)
[2020-10-12 18:38] LABS: Lymphocytes 29 % (20-55); Reactive Lymphocytes Few; Segmented Neutrophils 59 % (50-85); Total Cells Counted 100
[2020-10-12 18:42] LABS: Anisocytosis Slight; Platelet Estimate Adequate
[2020-10-12] MEDS ORDERED: levETIRAcetam 500 MG/5 ML VIAL IV ONE (20:02)
[2020-10-12] MEDS ORDERED: ONDANSETRON 4 MG/2 ML VIAL IV PRN (21:24)
[2020-10-12] MEDS ORDERED: ACETAMINOPHEN 325 MG TABLET PO PRN (21:24)
[2020-10-12] MEDS: SODIUM CHLORIDE 0.45% 1,000 ML IV SCH ×2 (21:46→23:35)
[2020-10-12] MEDS: PHENYTOIN 100 MG/2 ML VIAL IV SCH (23:35)
[2020-10-12] MEDS: DOCUSATE SODIUM 100 MG CAPSULE PO SCH (23:36)
[2020-10-13] MEDS ORDERED: LORazepam 2 MG/1 ML VIAL IV PRN (01:24)
[2020-10-13 05:34] LABS: Calcium 8.5 MG/DL (8.5-10.1); Osmolality,Calculated 274.5 MOS/KG (273-304)
[2020-10-13] MEDS: cefTRIAXone 500 MG in SYRINGE 1 EACH IV SCH (05:40)
[2020-10-13] MEDS: PHENYTOIN 100 MG/2 ML VIAL IV SCH ×4 (05:40→23:07)
[2020-10-13] MEDS: ENOXAPARIN 40 MG/0.4 ML SYRINGE SUBCUT SCH (05:41)
[2020-10-13] MEDS ORDERED: DOCUSATE SODIUM 100 MG CAPSULE PO SCH (08:00)
[2020-10-13] MEDS: METOPROLOL TARTRATE 25 MG TABLET PO SCH ×2 (08:32→16:26)
[2020-10-13] MEDS: LACTULOSE 20 GM/30 ML UDCUP PO SCH (08:32)
[2020-10-13] MEDS: DOCUSATE SODIUM 100 MG CAPSULE PO SCH ×2 (08:32→20:49)
[2020-10-13] MEDS: MULTIVITAMIN LIQUID (CENTRUM) 60 ML BOTTLE PO SCH (08:32)
[2020-10-13] MEDS: MAGNESIUM OXIDE 400 MG TABLET PO SCH (08:32)
[2020-10-13] MEDS: ASPIRIN 325 MG TABLET PO SCH (08:32)
[2020-10-13] MEDS: PANTOPRAZOLE 40 MG TABLET PO SCH (08:33)
[2020-10-13] MEDS ORDERED: DILTIAZEM 60 MG TABLET PO SCH (09:00)
[2020-10-13] MEDS: SODIUM CHLORIDE 0.45% 1,000 ML IV SCH ×2 (10:02→17:16)
[2020-10-13] MEDS ORDERED: MAGNESIUM HYDROXIDE SUSP 30 ML UDCUP PO PRN (11:00)
[2020-10-13] MEDS: DIGOXIN 0.125 MG TABLET PO SCH (12:01)
[2020-10-13] MEDS ORDERED: MAGNESIUM SULF RIDER 2 GM in PREMIX 1 EACH IV ONE (17:27)
[2020-10-13] MEDS: DEXTROSE 10% 1,000 ML IV SCH (19:09)
[2020-10-14] MEDS: cefTRIAXone 500 MG in SYRINGE 1 EACH IV SCH (03:06)
[2020-10-14] MEDS: ENOXAPARIN 40 MG/0.4 ML SYRINGE SUBCUT SCH (05:34)
[2020-10-14] MEDS: PHENYTOIN 100 MG/2 ML VIAL IV SCH ×3 (05:35→17:00)
[2020-10-14 06:54] LABS: Basophils % 0.2 % (0.0-0.8); Eosinophils % 0.4 % (0.00-10.9); Hematocrit 35.6 VOL% (35.7-47.0); Hemoglobin 11.8 GM/DL (12.0-16.0); Immature Granulocytes % 0.2 %; Immature Granulocytes Absolute 0.01 #; Lymphocytes # 0.8 10*3/uL (1.4-4.0); Lymphocytes % 14.1 % (21.3-54.2); Mean Corpuscular HGB Conc 33.1 GM/DL (32-36); Mean Corpuscular Volume 91.8 FL (87-102); Neutrophils % 69.1 % (38.7-73.9); Platelet Count 166 T/CUMM (130-400); Red Blood Count 3.88 MC/CUMM (3.8-5.5); Red Cell Distribution Width 13.9 % (9.3-17.3); White Blood Count 5.4 T/CUMM (4-12)
[2020-10-14 07:20] LABS: Albumin 2.8 G/DL (3.4-5.0); Anisocytosis 1+; Band Neutrophils 2 % (0-10); Bilirubin,Total 0.5 MG/DL (0.2-1.0); Calcium 8.5 MG/DL (8.5-10.1); Eosinophils 1 % (0-10); Lymphocytes 16 % (20-55); Osmolality,Calculated 274.2 MOS/KG (273-304); Platelet Estimate Normal; Segmented Neutrophils 66 % (50-85); Total Cells Counted 100; Total Protein 6.6 G/DL (6.4-8.3)
[2020-10-14 07:21] LABS: Macrocytosis Slight
[2020-10-14] MEDS: PANTOPRAZOLE 40 MG TABLET PO SCH (09:19)
[2020-10-14] MEDS: METOPROLOL TARTRATE 25 MG TABLET PO SCH ×2 (09:19→16:48)
[2020-10-14] MEDS: ASPIRIN 325 MG TABLET PO SCH (09:19)
[2020-10-14] MEDS: LACTULOSE 20 GM/30 ML UDCUP PO SCH (09:19)
[2020-10-14] MEDS: DOCUSATE SODIUM 100 MG CAPSULE PO SCH ×2 (09:19→23:30)
[2020-10-14] MEDS: MULTIVITAMIN LIQUID (CENTRUM) 60 ML BOTTLE PO SCH (09:20)
[2020-10-14] MEDS: MAGNESIUM OXIDE 400 MG TABLET PO SCH (09:20)
[2020-10-14] MEDS: DEXTROSE 10% 1,000 ML IV SCH ×2 (12:22→17:02)
[2020-10-14] MEDS: DIGOXIN 0.125 MG TABLET PO SCH (12:23)
[2020-10-14] MEDS ORDERED: GLUCAGON 1 MG VIAL IM PRN (14:39)
[2020-10-14] MEDS ORDERED: DEXTROSE 50% 25 GM/50 ML VIAL IV PRN (14:39)
[2020-10-14] MEDS: TRACE ELEMENTS (5) 1 ML in AMINO ACIDS/DEXT/LYTES 4.25-5% 2,000 ML IV SCH (16:47)
[2020-10-14] MEDS: INSULIN REGULAR 100 UNIT/ML SUBCUT SCH (18:59)
[2020-10-15] MEDS: INSULIN REGULAR 100 UNIT/ML SUBCUT SCH ×4 (00:40→18:39)
[2020-10-15] MEDS: PHENYTOIN 100 MG/2 ML VIAL IV SCH ×4 (00:42→18:39)
[2020-10-15] MEDS: DEXTROSE 10% 1,000 ML IV SCH ×2 (01:35→14:17)
[2020-10-15] MEDS: cefTRIAXone 500 MG in SYRINGE 1 EACH IV SCH (03:50)
[2020-10-15] MEDS ORDERED: MAGNESIUM SULF RIDER 2 GM in PREMIX 1 EACH IV ONE (06:00)
[2020-10-15] MEDS: ENOXAPARIN 40 MG/0.4 ML SYRINGE SUBCUT SCH (06:21)
[2020-10-15] MEDS: METOPROLOL TARTRATE 25 MG TABLET PO SCH ×2 (10:47→16:52)
[2020-10-15] MEDS: ASPIRIN 325 MG TABLET PO SCH (10:47)
[2020-10-15] MEDS: DOCUSATE SODIUM 100 MG CAPSULE PO SCH ×2 (10:48→21:01)
[2020-10-15] MEDS: MULTIVITAMIN LIQUID (CENTRUM) 60 ML BOTTLE PO SCH (10:48)
[2020-10-15] MEDS: MAGNESIUM OXIDE 400 MG TABLET PO SCH (10:48)
[2020-10-15] MEDS: LACTULOSE 20 GM/30 ML UDCUP PO SCH (10:48)
[2020-10-15] MEDS: PANTOPRAZOLE 40 MG TABLET PO SCH (10:48)
[2020-10-15] MEDS: FAT EMULSION 20% 250 ML IV SCH (13:56)
[2020-10-15] MEDS: DIGOXIN 0.125 MG TABLET PO SCH (14:12)
[2020-10-16] MEDS: PHENYTOIN 100 MG/2 ML VIAL IV SCH ×4 (00:31→17:49)
[2020-10-16] MEDS: DEXTROSE 10% 1,000 ML IV SCH ×3 (01:08→15:21)
[2020-10-16] MEDS: INSULIN REGULAR 100 UNIT/ML SUBCUT SCH ×4 (02:49→18:10)
[2020-10-16] MEDS: cefTRIAXone 500 MG in SYRINGE 1 EACH IV SCH (03:17)
[2020-10-16 05:54] LABS: Basophils % 0.2 % (0.0-0.8); Eosinophils # 0.1 10*3/uL (0.0-0.87); Eosinophils % 1.6 % (0.00-10.9); Hematocrit 28.8 VOL% (35.7-47.0); Hemoglobin 9.9 GM/DL (12.0-16.0); Immature Granulocytes % 0.4 %; Immature Granulocytes Absolute 0.02 #; Lymphocytes # 0.8 10*3/uL (1.4-4.0); Lymphocytes % 16.3 % (21.3-54.2); Mean Corpuscular HGB Conc 34.4 GM/DL (32-36); Mean Corpuscular Volume 89.2 FL (87-102); Mean Platelet Volume 11.6 FL (9.6-12.0); Monocytes % 15.7 % (1.7-12.7); Neutrophils % 65.8 % (38.7-73.9); Platelet Count 155 T/CUMM (130-400); Red Blood Count 3.23 MC/CUMM (3.8-5.5); Red Cell Distribution Width 13.8 % (9.3-17.3); White Blood Count 4.9 T/CUMM (4-12)
[2020-10-16 06:09] LABS: Calcium 8.2 MG/DL (8.5-10.1); Osmolality,Calculated 277.4 MOS/KG (273-304)
[2020-10-16] MEDS: TRACE ELEMENTS (5) 1 ML in AMINO ACIDS/DEXT/LYTES 4.25-5% 2,000 ML IV SCH ×2 (07:14→16:00)
[2020-10-16 07:30] LABS: Lymphocytes 13 % (20-55); Platelet Estimate Adequate; Polychromasia Slight; Segmented Neutrophils 76 % (50-85); Total Cells Counted 100
[2020-10-16] MEDS: METOPROLOL TARTRATE 25 MG TABLET PO SCH ×2 (09:33→16:54)
[2020-10-16] MEDS: ASPIRIN 325 MG TABLET PO SCH (09:34)
[2020-10-16] MEDS: PANTOPRAZOLE 40 MG TABLET PO SCH (09:34)
[2020-10-16] MEDS: MULTIVITAMIN LIQUID (CENTRUM) 60 ML BOTTLE PO SCH (09:34)
[2020-10-16] MEDS: DOCUSATE SODIUM 100 MG CAPSULE PO SCH ×2 (09:34→21:17)
[2020-10-16] MEDS: LACTULOSE 20 GM/30 ML UDCUP PO SCH (09:34)
[2020-10-16] MEDS: MAGNESIUM OXIDE 400 MG TABLET PO SCH (09:34)
[2020-10-16] MEDS: DIGOXIN 0.125 MG TABLET PO SCH (13:36)
[2020-10-16] MEDS: FAT EMULSION 20% 250 ML IV SCH (15:21)
[2020-10-17] MEDS: PHENYTOIN 100 MG/2 ML VIAL IV SCH ×4 (00:58→18:31)
[2020-10-17] MEDS: INSULIN REGULAR 100 UNIT/ML SUBCUT SCH ×4 (01:26→19:01)
[2020-10-17] MEDS: cefTRIAXone 500 MG in SYRINGE 1 EACH IV SCH (02:39)
[2020-10-17] MEDS: DEXTROSE 10% 1,000 ML IV SCH ×2 (07:22→15:40)
[2020-10-17 09:20] LABS: INR 1.1; PT Patient Result 11.4 SECS (9.8-11.9)
[2020-10-17] MEDS: METOPROLOL TARTRATE 25 MG TABLET PO SCH ×3 (11:14→17:15)
[2020-10-17] MEDS: ASPIRIN 325 MG TABLET PO SCH (11:14)
[2020-10-17] MEDS: MULTIVITAMIN LIQUID (CENTRUM) 60 ML BOTTLE PO SCH (11:15)
[2020-10-17] MEDS: PANTOPRAZOLE 40 MG TABLET PO SCH (11:15)
[2020-10-17] MEDS: LACTULOSE 20 GM/30 ML UDCUP PO SCH (11:15)
[2020-10-17] MEDS: MAGNESIUM OXIDE 400 MG TABLET PO SCH (11:15)
[2020-10-17] MEDS: DOCUSATE SODIUM 100 MG CAPSULE PO SCH ×2 (11:15→21:00)
[2020-10-17] MEDS ORDERED: propofoL 200 MG/20 ML VIAL IV ONE (13:00)
[2020-10-17] MEDS ORDERED: LIDOCAINE 2% 5 ML VIAL ONE (13:00)
[2020-10-17] MEDS ORDERED: ETOMIDATE 20 MG/10 ML VIAL IV ONE (13:07)
[2020-10-17] MEDS: LACTATED RINGERS 1,000 ML IV SCH (13:18)
[2020-10-17] MEDS ORDERED: MAGNESIUM SULF RIDER 2 GM in PREMIX 1 EACH IV ONE (14:30)
[2020-10-17] MEDS: DIGOXIN 0.125 MG TABLET PO SCH ×2 (15:34→17:16)
[2020-10-17] MEDS: FAT EMULSION 20% 250 ML IV SCH (15:34)
[2020-10-17] MEDS: TRACE ELEMENTS (5) 1 ML in AMINO ACIDS/DEXT/LYTES 4.25-5% 2,000 ML IV SCH (17:09)
[2020-10-18] MEDS: INSULIN REGULAR 100 UNIT/ML SUBCUT SCH ×4 (00:36→17:22)
[2020-10-18] MEDS: PHENYTOIN 100 MG/2 ML VIAL IV SCH ×3 (02:35→15:35)
[2020-10-18] MEDS: cefTRIAXone 500 MG in SYRINGE 1 EACH IV SCH (03:30)
[2020-10-18 09:11] LABS: Calcium 8.5 MG/DL (8.5-10.1); Osmolality,Calculated 276.5 MOS/KG (273-304)
[2020-10-18] MEDS: ASPIRIN 325 MG TABLET PO SCH (12:50)
[2020-10-18] MEDS: METOPROLOL TARTRATE 25 MG TABLET PO SCH ×2 (12:50→17:21)
[2020-10-18] MEDS: MULTIVITAMIN LIQUID (CENTRUM) 60 ML BOTTLE PO SCH (12:50)
[2020-10-18] MEDS: LACTULOSE 20 GM/30 ML UDCUP PO SCH (12:50)
[2020-10-18] MEDS: PANTOPRAZOLE 40 MG TABLET PO SCH (12:51)
[2020-10-18] MEDS: MAGNESIUM OXIDE 400 MG TABLET PO SCH (12:51)
[2020-10-18] MEDS: DOCUSATE SODIUM 100 MG CAPSULE PO SCH ×2 (12:51→21:48)
[2020-10-18] MEDS: DIGOXIN 0.125 MG TABLET PO SCH (12:52)
[2020-10-18] MEDS: LACTATED RINGERS 1,000 ML IV SCH (12:52)
[2020-10-18] MEDS: FAT EMULSION 20% 250 ML IV SCH (16:30)
[2020-10-18] MEDS: PHENYTOIN ER 100 MG CAPSULE PO SCH (21:48)
[2020-10-18] MEDS: levETIRAcetam 250 MG TABLET PO SCH (21:48)
[2020-10-19] MEDS: INSULIN REGULAR 100 UNIT/ML SUBCUT SCH ×2 (00:09→05:14)
[2020-10-19] MEDS: cefTRIAXone 500 MG in SYRINGE 1 EACH IV SCH (03:18)
[2020-10-19] MEDS: METOPROLOL TARTRATE 25 MG TABLET PO SCH (11:01)
[2020-10-19] MEDS: MAGNESIUM OXIDE 400 MG TABLET PO SCH (11:01)
[2020-10-19] MEDS: levETIRAcetam 250 MG TABLET PO SCH (11:01)
[2020-10-19] MEDS: MULTIVITAMIN LIQUID (CENTRUM) 60 ML BOTTLE PO SCH (11:02)
[2020-10-19] MEDS: ASPIRIN 325 MG TABLET PO SCH (11:02)
[2020-10-19] MEDS: LACTULOSE 20 GM/30 ML UDCUP PO SCH (11:02)
[2020-10-19] MEDS: DOCUSATE SODIUM 100 MG CAPSULE PO SCH (11:02)
[2020-10-19] MEDS: PANTOPRAZOLE 40 MG TABLET PO SCH (11:03)
[2020-10-19] MEDS: PHENYTOIN ER 100 MG CAPSULE PO SCH (11:03)
[2020-10-19 11:35] VITALS: BP 145/56
== END 2020-10-19 12:25 | DRG 57 ==
LOC: EDUNIT# → EDBD → N.ED 15:13 → N.EDINP 20:53 → N.3E 21:22
PROVIDERS: ADMIT Internal Medicine; ATTEND Internal Medicine
PROC: EGDWPEG (ICD-10-PCS; 2020-10-17 09:35)